=== PATIENT | female | born 1945 | race Caucasian/White ===

== ENCOUNTER 2016-12-13 09:59 | Outpatient (CLI) | payer MEDICARE, OTHER ==
--- NOTE | 2016-12-13 10:23 | RAD ---
TWO VIEW CHEST: HISTORY: Followup abnormal chest x-ray. COMPARISON: Portable exam of 12/07/16. That exam questioned a nodule in the left upper lung. FINDINGS: On today's 2-view exam, there is no evidence of pulmonary mass or nodule in the left upper lung. Th ere is a tiny calcified nodule in the right apical region which is stable. The heart is mildly enla rged. Transvenous AICD leads remain unchanged in position. Some streaky atelectatic changes in the left lung base are noted. Vascular markings are upper normal. Osseous structures unremarkable. IMPRESSION: 1. Cardiomegaly. 2. Some atelectatic changes in the left lung base. 3. No evidence of mass or nodule in the left upper lung field on this 2-view study. POS: [facility]
== END 2016-12-13 10:00 | disposition home or self-care (01) ==
LOC: MADRAD 09:59
PROVIDERS: ATTEND Family Medicine
DX: R93.8 Abnormal findings on diagnostic imaging of other specified body structures (principal); I51.7 Cardiomegaly
CPT/HCPCS: 71020

== ENCOUNTER 2017-10-13 23:44 | Emergency (ER) | payer MEDICARE ==
[~2017-10-13 23:44] MED LIST: Sodium Chloride 0.9% 1,000 ML BAG ONE
[2017-10-14 00:25] LABS: Prothrombin Time 13.7 SEC (12.0-14.7)
[2017-10-14 00:27] LABS: D-Dimer Test 1.77 *mcg/mL (0.27-0.43)
[2017-10-14] MEDS ORDERED: methylPREDNISolone Sod Succ/PF 125 MG/2 ML VIAL ONE (00:31)
[2017-10-14 00:36] LABS: PTT 28.3 SEC (22.9-36.1)
[2017-10-14 00:39] LABS: ALT (SGPT) 58 U/L (8-55); AST (SGOT) 78 U/L (5-34); Albumin 3.4 g/dL (3.4-4.8); Alkaline Phosphatase 126 U/L (40-150); Anion Gap 17 mmol/L (10-20); BUN (Urea Nitrogen) 18 mg/dL (9.8-20.1); Bilirubin, Total 0.4 mg/dL (0.2-1.2); Calc. Creatinine Clearance 0 mL/min (70-130); Carbon Dioxide 22 mmol/L (23-31); Chloride 98 mmol/L (98-107); Estimated GFR-MDRD 42; Glucose 345 mg/dL (83-110); Lipase 29 U/L (8-78); Potassium 5.1 mmol/L (3.5-5.1); Protein, Total 6.4 g/dL (6.0-8.3); Sodium 132 mmol/L (136-145)
[2017-10-14 00:43] LABS: Bilirubin Negative (Negative); Blood, Urine Trace (Negative); Clarity Clear (Clear); Glucose, Urine (Dipstick) 100 mg/dL (Negative); Leukocyte Negative (Negative); Nitrite Negative (Negative); Protein, Urine (Dipstick) > or equal to 300 mg/dL (Neg-Trace); Specific Gravity, Urine 1.025 (1.005-1.030); Urobilinogen 0.2 mg/dL (0.2-1.0); pH, Urine 6.5 (5.0-9.0)
[2017-10-14 00:45] LABS: CKMB 1.4 ng/mL (0-6.6); Troponin I 0.027 ng/mL (< 0.028)
[2017-10-14 00:45] LABS: Bacteria/HPF Rare-Few HPF (None Seen); Renal Epithelial 0-3 HPF (0-3); Squamous Epithelial 0-3 HPF (0-3); Transitional Epithelial 0-3 HPF (0-3); WBC/HPF 0-3 HPF (0-3)
[2017-10-14 00:46] LABS: Hyaline Casts/LPF 4-6 HYALINE CAST LPF (0-3 Hyaline); Other Casts/LPF 4-6 MIXED CASTS LPF (0-3 Hyaline)
[2017-10-14 00:47] LABS: #Basophils 0.2 thou/uL (0.0-0.2); #Eosinphils 0.1 thou/uL (0.0-0.7); #Lymphocytes 2.6 thou/uL (1.20-3.40); #Monocytes 0.9 thou/uL (0.11-0.59); #Neutrophils 10.1 thou/uL (1.40-6.50); %Basophils 1.4 % (0.0-1.0); %Eosinophils 0.6 % (0.0-10.0); %Lymphocytes 18.5 % (21.0-51.0); %Monocytes 6.4 % (0.0-10.0); Hemoglobin 14.7 g/dL (12.0-16.0); Mean Corpuscular HGB CONC 32.5 g/dL (32.0-36.0); Mean Corpuscular Hemoglobin 31.1 pg (27.0-31.0); Mean Corpuscular Volume 95.7 fl (81.0-99.0); Mean Platelet Volume 6.6 fL (7.4-10.4); Platelet Count 390 thou/uL (130-400); RBC Distribution Width 12.2 % (11.5-14.5); Red Blood Cell (RBC) Count 4.74 mill/uL (4.20-5.40); White Blood Cell (WBC) Count 13.8 thou/uL (4.8-10.8)
[2017-10-14] MEDS ORDERED: Enoxaparin Sodium 30 MG/0.3 ML SYRINGE ONE (00:49)
[2017-10-14] MEDS ORDERED: Midazolam HCl 10 mg/2 ml Vial ONE (00:49)
[2017-10-14] MEDS ORDERED: Enoxaparin Sodium 60 MG/0.6 ML SYRINGE ONE (00:49)
--- NOTE | 2017-10-14 08:25 | RAD ---
CHEST 1 VIEW: HISTORY: ET tube placement. COMPARISON: Chest 1 view same day. FINDINGS: The patient's endotracheal tube tip is craniad to the leonardo 3 cm. Extensive perihilar opacities are present. Heart size is enlarged. Cardiac device is similar. No pneumothorax. IMPRESSION: Endotracheal tube tip craniad to the leonardo 3.1 cm. POS: [facility]
== END 2017-10-14 01:20 | disposition short-term general hospital (02) ==
LOC: MADERS 23:44
DX: A41.9 Sepsis, unspecified organism (principal); J18.0 Bronchopneumonia, unspecified organism; J96.90 Respiratory failure, unspecified, unspecified whether with hypoxia or hypercapnia; E78.5 Hyperlipidemia, unspecified; M19.90 Unspecified osteoarthritis, unspecified site; I11.0 Hypertensive heart disease with heart failure; I50.9 Heart failure, unspecified; J44.9 Chronic obstructive pulmonary disease, unspecified; F32.9 Major depressive disorder, single episode, unspecified; F17.210 Nicotine dependence, cigarettes, uncomplicated
CPT/HCPCS: 31500; 36415; 51702; 71045; 80053; 81003; 81015; 82553; 83605; 83690; 83880; 84484; 85025; 85379; 85610; 85730; 87040; 93005; 94760; 96361; 96372; 96374; 96375; J1650; J1956; J2250; J2930; J7050; J7620

== ENCOUNTER 2019-09-27 16:30 | Emergency (ER) | payer MEDICARE ==
[2019-09-27] MEDS ORDERED: Cyclobenzaprine 10 MG TAB ONE (17:05)
[2019-09-27] MEDS ORDERED: Ketorolac Tromethamine 30 MG/ML VIAL ONE (17:05)
[2019-09-27] MEDS ORDERED: Ondansetron ODT 4 MG TAB ONE (17:05)
== END 2019-09-27 18:00 | disposition home or self-care (01) ==
LOC: MADERS 16:30
DX: M62.838 Other muscle spasm (principal); I10 Essential (primary) hypertension; E78.5 Hyperlipidemia, unspecified; M19.90 Unspecified osteoarthritis, unspecified site; I49.3 Ventricular premature depolarization; J44.9 Chronic obstructive pulmonary disease, unspecified; I11.0 Hypertensive heart disease with heart failure; I50.9 Heart failure, unspecified; F17.210 Nicotine dependence, cigarettes, uncomplicated; Z79.899 Other long term (current) drug therapy
CPT/HCPCS: 96372; 99283; J1885; Q0162

== ENCOUNTER 2019-11-25 14:33 | Emergency (ER) | payer MEDICARE ==
[2019-11-25] MEDS ORDERED: Morphine 4 MG/ML VIAL ONE ×2 (14:59→18:06)
--- NOTE | 2019-11-25 15:42 | RAD ---
Exam: XR Femur Lt 2 View STANDARD HISTORY: Left hip and thigh pain after tripping over parking barrier. COMPARISON: None. FINDINGS: Left total knee prosthesis is noted without hardware complication. Area of sclerosis is seen within t he distal left femoral metaphysis which may be related to low-grade chondroid lesion. This does not have the appearance suggestive of postsurgical change. Osteopenia is present. No fracture or dislocat ion is identified. Prominent vascular calcifications are seen in the femoral arteries bilaterally. Surgical clips are seen at the medial aspect of the distal left lower extremity. IMPRESSION: 1. No acute osseous abnormality identified. 2. Left total knee prosthesis. 3. Irregular area of sclerosis distal left femoral metaphysis which does not have the appearance sugg estive of postsurgical changes. This may represent a low-grade chondroid lesion. 4. Osteopenia.
--- NOTE | 2019-11-25 15:51 | RAD ---
Exam: XR Hip Lt 2-3 View HISTORY: Left thigh and hip pain after tripping over a parking barrier. COMPARISON: None FINDINGS: Degenerative changes in the pubic symphysis. Osteopenia is present. Mild osteoarthritis is seen invol ving the left hip. No acute fracture, dislocation, or other acute osseous abnormality is identified. Vascular calcifications are seen in the femoral arteries with surgical clips seen in the medial thigh . IMPRESSION: No acute osseous abnormality is identified.
--- NOTE | 2019-11-25 16:55 | CT ---
NONCONTRAST PELVIC CT: 11/25/19 HISTORY: Pain. Unable to ambulate or stand. Injury. FINDINGS: There appears to be a large ventral abdominal wall dehiscence with extension of mesentery, small and large bowel loops through the area of the dehiscence. The intra-abdominal contents are contained with in the peritoneal lining. No evidence of a true herniation. No evidence of bowel obstruction. The vis ualized solid organs are grossly unremarkable. Hyperdensity in the lower pole of the left kidney may represent a hemorrhagic or complex proteinaceous cyst. Hypodensity in the lower pole of the right kid vishnu is likely a cyst that is incompletely evaluated. 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 No obvious pelvic mass, lymphadenopathy, free air or free fluid. Uterus and adnexal structures are un remarkable. There is diverticulosis in the sigmoid colon. No diverticulitis. The left and right femoral neck and femoral head demonstrate appropriate trabeculation. The hip joint spaces are symmetric. Bilateral obturator rings are intact. The left and right iliac wing are also i ntact. Sacroiliac joints are patent and symmetric. Sacrum appears to be intact. Sacral ala are preser fili. Presacral fat is unremarkable. There is a nondisplaced fracture at the base of the greater trochanter. IMPRESSION: 1. Nondisplaced fracture at the base of the left greater trochanter. 2. Additional findings as above. POS: [facility]
== END 2019-11-25 18:10 | disposition short-term general hospital (02) ==
LOC: MADERS 14:33
DX: S72.115A Nondisplaced fracture of greater trochanter of left femur, initial encounter for closed fracture (principal); E78.5 Hyperlipidemia, unspecified; M19.90 Unspecified osteoarthritis, unspecified site; I11.0 Hypertensive heart disease with heart failure; I50.9 Heart failure, unspecified; I49.9 Cardiac arrhythmia, unspecified; J44.9 Chronic obstructive pulmonary disease, unspecified; F32.9 Major depressive disorder, single episode, unspecified; F17.210 Nicotine dependence, cigarettes, uncomplicated; Z74.1 Need for assistance with personal care; W18.30XA Fall on same level, unspecified, initial encounter
CPT/HCPCS: 72192; 96374; 96376; J2270

== ENCOUNTER 2020-01-12 11:12 | Outpatient (CLI) | payer MEDICARE ==
--- NOTE | 2020-01-12 13:40 | RAD ---
RADIOGRAPH LEFT KNEE 3 VIEWS: Date: 01/12/2020 HISTORY: 74-year-old female with acute, traumatic left knee pain after fall. FINDINGS: Metallic prostheses cover the distal femoral and tibial plateau articular surfaces. Resurfacing merrill es of posterior aspect of patella. No signs of hardware loosening. No acute fracture is identified, a lthough the osteopenia decreases the sensitivity. Multiple surgical clips in the soft tissues posteri or to the distal thigh and proximal leg. There is no evidence of joint effusion or hemarthrosis. IMPRESSION: 1. Status post left total knee replacement arthroplasty. 2. No acute fracture identified. POS: [facility]
--- NOTE | 2020-01-12 13:52 | RAD ---
LEFT FEMUR 4 VIEWS: Date: 01/12/2020 HISTORY: Fall 2 weeks ago with leg and hip pain. Comparison made to femur films of 11/25/2019. FINDINGS: There are degenerative changes at the hip with joint narrowing and spurring from the femoral head. Fe moral head contour is maintained. The femoral neck appears intact. There is irregularity and abnormal lucency in the intertrochanteric region. A nondisplaced fracture c annot be excluded. Findings are similar to the exam; however, if there is pain at the left hip, recommend further evaluation with hip MRI or CT. Mid and distal femur remains intact and unremarkable. The benign sclerotic density in the distal femu r is again noted. The left knee prosthesis appears stable. IMPRESSION: Degenerative change at the left hip again noted. Irregularity in the intertrochanteric region as desc ribed above. If there is clinical concern of fracture, recommend further evaluation with MRI or CT. POS: [facility]
== END 2020-01-12 11:13 | disposition home or self-care (01) ==
LOC: MADRAD 11:12
PROVIDERS: ATTEND Family Medicine
DX: M79.605 Pain in left leg (principal); M16.12 Unilateral primary osteoarthritis, left hip; R93.7 Abnormal findings on diagnostic imaging of other parts of musculoskeletal system; Z96.652 Presence of left artificial knee joint

== ENCOUNTER 2020-05-13 14:17 | Emergency (ER) | payer MEDICARE ==
[~2020-05-13 14:17] MED LIST changes: +Iopamidol 370 76% 125 ML VIAL FS ONE; -Sodium Chloride 0.9% 1,000 ML BAG ONE; +Sodium Chloride 0.9% 100 ML BAG ONE
[2020-05-13] MEDS ORDERED: Ketorolac Tromethamine 30 MG/ML VIAL ONE (15:22)
[2020-05-13] MEDS ORDERED: Ondansetron ODT 4 MG TAB ONE (15:22)
[2020-05-13 15:23] LABS: #Basophils 0.2 thou/uL (0.0-0.2); #Lymphocytes 1.7 thou/uL (1.20-3.40); #Monocytes 1.4 thou/uL (0.11-0.59); #Neutrophils 8.8 thou/uL (1.40-6.50); %Basophils 1.3 % (0.0-1.0); %Eosinophils 0.3 % (0.0-10.0); %Lymphocytes 13.8 % (21.0-51.0); %Monocytes 11.6 % (0.0-10.0); %Neutrophils 73.1 % (42.0-75.0); Hemoglobin 12.8 g/dL (12.0-16.0); Mean Corpuscular HGB CONC 31.9 g/dL (32.0-36.0); Mean Corpuscular Hemoglobin 29.8 pg (27.0-31.0); Mean Corpuscular Volume 93.3 fL (78.0-98.0); Mean Platelet Volume 7.4 fL (7.4-10.4); Platelet Count 268 thou/uL (130-400); RBC Distribution Width 13.3 % (11.5-14.5); White Blood Cell (WBC) Count 12.1 thou/uL (4.8-10.8)
[2020-05-13 15:43] LABS: ALT (SGPT) 8 U/L (8-55); AST (SGOT) 9 U/L (5-34); Albumin 3.5 g/dL (3.4-4.8); Alkaline Phosphatase 95 U/L (40-110); Anion Gap 14 mmol/L (10-20); BUN (Urea Nitrogen) 8 mg/dL (9.8-20.1); Bilirubin, Total 0.8 mg/dL (0.2-1.2); CK (CPK) 84 U/L (29-168); Calc. Creatinine Clearance 0 mL/min (70-130); Calcium 8.3 mg/dL (7.8-10.44); Carbon Dioxide 27 mmol/L (23-31); Chloride 98 mmol/L (98-107); Estimated GFR-MDRD 61; Glucose 125 mg/dL (83-110); Potassium 3.3 mmol/L (3.5-5.1); Protein, Total 6.5 g/dL (6.0-8.3); Sodium 136 mmol/L (136-145)
--- NOTE | 2020-05-13 16:06 | RAD ---
CHEST ONE VIEW: History: Dyspnea. Comparison: 02-26-2020 FINDINGS: Fairly marked cardiomegaly with bilateral vascular congestion and some increased linear and interstit ial markings bilaterally, more so in the infrahilar regions. Left ICD. No confluent pneumonia. Healed right rib fractures. IMPRESSION: Cardiomegaly with increased markings bilaterally, particularly the infrahilar regions, overall stabl e from prior exam. 02-26-2020. No confluent pneumonia or overt pleural effusion. POS: [facility]
--- NOTE | 2020-05-13 16:09 | RAD ---
LEFT FOREARM TWO VIEWS: History: Injury FINDINGS: Surgical clips overlie the distal forearm. Osteoarthrosis and degenerative changes involving the carp als bones with some intraosseous cystic changes within the triquetrum. There is diffuse bony deminera lization. No acute fracture or dislocation. IMPRESSION: Bony demineralization with osteoporosis and degenerative change without acute fracture. POS: [facility]
[2020-05-13] MEDS ORDERED: Potassium Chloride 20 MEQ TAB ONE (16:16)
--- NOTE | 2020-05-13 16:44 | RAD ---
LEFT KNEE FOUR VIEWS: History: Pain FINDINGS: Total knee arthroplasty changes. Stable probable nonaggressive_chondroid matrix bone lesion in the di stal femur, metaepiphysis region. Bony demineralization. No acute fracture or dislocation. IMPRESSION: Total knee arthroplasty changes. Stable appearing bone lesion in the distal femur. No fracture or dis location. POS: [facility]
[2020-05-13] MEDS ORDERED: traMADol HCl 50 MG TAB ONE (17:31)
--- NOTE | 2020-05-13 17:49 | CT ---
CT ANGIOGRAM OF THE CHEST: Date: 05-13-2020 History: Trauma five days ago, dyspnea, elevated D-Dimer. Technique: Axial CT imaging at 2.5 mm intervals through the chest with IV contrast using CT angiogram protocol. Coronal and sagittal 3D reformatted imaging obtained. FINDINGS: There is a transvenous pacing device entered via a left sided approach with leads in the region of th e right atrium and right ventricle. The heart is enlarged with multi-chamber cardiac enlargement, lef t greater than right. Midline sternotomy changes are present with diastasis of the sternotomy site. N o axillary lymphadenopathy. No discrete hilar or mediastinal adenopathy is seen. Limited assessment of the upper abdomen demonstrates granulomatous change within the spleen and a sli ght heterogeneity of the hepatic parenchyma. A partially imaged hypodense lesion is seen within the r ight lobe of the liver on Image 101, which appears similar when compared to a CT abdomen/pelvis perfo rmed 11-08-2015. There is lobulated enlargement of the adrenal gland on the left which is also stable when compared to prior imaging. There is an incompletely imaged hypodense lesion associated with the posterior upper pole of the right kidney suggesting a prominent cyst, enlarged when compared to the p rior examination, now measuring 5.5 cm, previously measuring in the 2.6 cm range. This lesion is inco mpletely imaged and thus, follow up renal ultrasound is advised. There is a nodule within the right l obe of the thyroid gland measuring 1.3 cm. There are scattered atherosclerotic calcification of the aortic arch and the descending thoracic aort a. No significant pleural, paracardial, or mediastinal fluid is seen. There is no pneumothorax. No discrete/dominant pulmonary parenchymal mass lesion or nodule is noted on either side. There is no discrete endobronchial lesion appreciated on this examination. Multiple old posterolateral right sided rib fractures are noted. No filling defect is seen within the pulmonary arterial vasculature to suggest the presence of acute pulmonary arterial embolism. Evaluation of the pulmonary artery supplying bilateral lower lobes is sl ightly limited secondary to motion artifact. IMPRESSION: 1. No evidence for acute pulmonary arterial embolism. 2. Incompletely imaged hypodense lesion involving upper pole of right kidney posteriorly for which fo llow up ultrasound is advised. 3. Hypodense nodule within the right lobe of the thyroid gland, for which follow up ultrasound is adv ised. Code T POS: [facility]
== END 2020-05-13 17:20 | disposition home or self-care (01) ==
LOC: MADERS 14:17
DX: S22.41XA Multiple fractures of ribs, right side, initial encounter for closed fracture (principal); J44.9 Chronic obstructive pulmonary disease, unspecified; N28.89 Other specified disorders of kidney and ureter; E04.1 Nontoxic single thyroid nodule; I10 Essential (primary) hypertension; E78.5 Hyperlipidemia, unspecified; I11.0 Hypertensive heart disease with heart failure; I50.9 Heart failure, unspecified; F17.210 Nicotine dependence, cigarettes, uncomplicated; W19.XXXA Unspecified fall, initial encounter
CPT/HCPCS: 36415; 71045; 71275; 80053; 82550; 83880; 84484; 85025; 85379; 93005; 94640; 96374; J1885; J3490; J7620; Q0162; Q9967

== ENCOUNTER 2020-06-11 08:32 | Emergency (ER) | payer MEDICARE ==
--- NOTE | 2020-06-11 10:40 | RAD ---
RIGHT WRIST THREE VIEWS: HISTORY: Injury with pain. FINDINGS: Findings show mild osteopenia. Mild degenerative change at the first carpometacarpal. Carpals appear intact. There is narrowing of the radial carpal joint with mild degenerative change. No acute fractur e identified. IMPRESSION: Degenerative changes as described. No acute fracture identified. POS: [facility]
== END 2020-06-11 09:40 | disposition home or self-care (01) ==
LOC: MADERS 08:32
DX: S63.501A Unspecified sprain of right wrist, initial encounter (principal); S80.02XA Contusion of left knee, initial encounter; S05.8X1A Other injuries of right eye and orbit, initial encounter; S60.221A Contusion of right hand, initial encounter; R14.0 Abdominal distension (gaseous); E78.5 Hyperlipidemia, unspecified; I11.0 Hypertensive heart disease with heart failure; I50.9 Heart failure, unspecified; I49.3 Ventricular premature depolarization; I49.9 Cardiac arrhythmia, unspecified; F32.9 Major depressive disorder, single episode, unspecified; D64.9 Anemia, unspecified; F17.210 Nicotine dependence, cigarettes, uncomplicated; M19.90 Unspecified osteoarthritis, unspecified site; J44.9 Chronic obstructive pulmonary disease, unspecified; Z79.899 Other long term (current) drug therapy; Z79.82 Long term (current) use of aspirin; W18.30XA Fall on same level, unspecified, initial encounter

== ENCOUNTER 2022-04-16 23:23 | Emergency (ER) | payer MEDICARE ==
[2022-04-16] MEDS ORDERED: Morphine 4 MG/ML VIAL ONE (23:44)
== END 2022-04-17 00:28 | disposition home or self-care (01) ==
LOC: MADERS 23:23
DX: S99.921A Unspecified injury of right foot, initial encounter (principal); M19.071 Primary osteoarthritis, right ankle and foot; F17.210 Nicotine dependence, cigarettes, uncomplicated; J44.9 Chronic obstructive pulmonary disease, unspecified; D64.9 Anemia, unspecified; I11.0 Hypertensive heart disease with heart failure; I50.9 Heart failure, unspecified; E78.5 Hyperlipidemia, unspecified; X58.XXXA Exposure to other specified factors, initial encounter; Z95.1 Presence of aortocoronary bypass graft; Z79.82 Long term (current) use of aspirin; Z79.899 Other long term (current) drug therapy
CPT/HCPCS: J2270

== ENCOUNTER 2022-08-06 12:14 | Emergency (ER) | payer OTHER, MEDICAID ==
[2022-08-06] MEDS ORDERED: diphenhydrAMINE 50 MG/ML VIAL ONE ×2 (12:17→12:28)
[2022-08-06] MEDS ORDERED: Sodium Chloride 0.9% 500 ML ONE (12:34)
[2022-08-06] MEDS ORDERED: HYDROcodone/Acetaminophen 10/325 mg Tablet ONE (12:34)
[2022-08-06] MEDS ORDERED: Lorazepam 2 MG/ML VIAL ONE (12:38)
[2022-08-06 12:47] LABS: Hemoglobin 13.2 g/dL (12.0-16.0); Mean Corpuscular HGB CONC 34.1 g/dL (32.0-36.0); Mean Corpuscular Volume 93.7 fl (78.0-98.0); Mean Platelet Volume 7.1 fL (7.4-10.4); Platelet Count 282 10x3/uL (130-400); RBC Distribution Width 11.6 % (11.5-14.5); Red Blood Cell (RBC) Count 4.11 mill/uL (4.20-5.40); White Blood Cell (WBC) Count 25.6 10x3/uL (4.8-10.8)
[2022-08-06 12:48] LABS: Band 3 % (5-11); Eosinophils 2 % (0-10); Lymphocytes 13 % (21-51); MDiff Complete? YES; Monocytes 4 % (0-10); Neutrophil 78 % (42-75)
[2022-08-06 12:49] LABS: Base Excess-Venous -0.1 mmol/L (-2.0 to 3.0); Bicarbonate (HCO3v) 24.2 mmol/L (22.0-28.0); CO2 Tension (PvCO2) 37.5 mmHg (42.0-51.0); Calcium, Ionized 1.14 mmol/L (1.15-1.33); Chloride 96 mmol/L (98-107); Hemoglobin - Calc 14.1 g/dL (12.0-16.0); Potassium 4.1 mmol/L (3.5-5.1); Sodium 133 mmol/L (138-145); T. Carbon Dioxide 25.3 mmol/L (22.0-28.0); vO2 Saturation-calc 95.1 % (60.0-85.0)
[2022-08-06 12:54] LABS: ALT (SGPT) 17 U/L (8-55); AST (SGOT) 26 U/L (5-34); Albumin 3.5 g/dL (3.4-4.8); Alkaline Phosphatase 84 U/L (40-110); Anion Gap 15 mmol/L (10-20); BUN (Urea Nitrogen) 18 mg/dL (9.8-20.1); Bilirubin, Total 0.9 mg/dL (0.2-1.2); Calc. Creatinine Clearance 0 mL/min (70-130); Calcium 8.9 mg/dL (7.8-10.44); Carbon Dioxide 23 mmol/L (23-31); Chloride 96 mmol/L (98-107); Estimated GFR 45; Globulin 2.8 g/dL (2.4-3.5); Glucose 114 mg/dL (83-110); Lipase 8 U/L (8-78); Potassium 4.1 mmol/L (3.5-5.1); Protein, Total 6.3 g/dL (5.8-8.1); Sodium 130 mmol/L (136-145)
[2022-08-06 12:56] LABS: Acetaminophen Less than 10.0 mcg/mL (10.0-30.0); Alcohol Less than 10 mg/dL (Less than 10); CK (CPK) 388 U/L (29-168); Magnesium 1.6 mg/dL (1.6-2.6); Salicylate Less than 8.0 mg/dL (15.0-30.0)
[2022-08-06 13:16] LABS: CKMB 6.3 ng/mL (0-6.6)
[2022-08-06] MEDS ORDERED: Sodium Chloride 0.9% 100 ML ONE ×2 (13:38→15:52)
[2022-08-06 13:54] LABS: Bilirubin Small (Negative); Blood, Urine Small (Negative); Glucose, Urine (Dipstick) 100 mg/dL (Negative); Ketone, Urine Trace mg/dL (Negative); Leukocyte Large (Negative); Nitrite Positive (Negative); Protein, Urine (Dipstick) 100 mg/dL (Neg-Trace); Specific Gravity, Urine 1.015 (1.005-1.030); pH, Urine 5.5 (5.0-9.0)
[2022-08-06 13:57] LABS: Clarity Cloudy (Clear)
[2022-08-06 13:58] LABS: Bacteria/HPF 4+ HPF (None Seen); Other Microscopic Description C&S SET UP; Squamous Epithelial 0-3 HPF (0-3); WBC/HPF Greater Than 50 HPF (0-3)
[2022-08-06 14:07] LABS: Amphetamine Not Detected (NotDetected); Barbiturates Screen Not Detected (NotDetected); Benzodiazepine Screen Detected (NotDetected); Cocaine Metabolite Screen Not Detected (NotDetected); Medtox Control Line Valid? VALID (VALID); Methadone Not Detected (NotDetected); Methamphetamine Not Detected (NotDetected); Opiate Screen Not Detected (NotDetected); Oxycodone Screen Not Detected (NotDetected); Phencyclidine (PCP) Not Detected (NotDetected); THC/Cannabinoid Screen Not Detected (NotDetected); Tricyclic Screen Not Detected (NotDetected)
[2022-08-06] MEDS ORDERED: Magnesium 2 GM/50 ML BAG (IN WATER) ONE (14:27)
[2022-08-06] MEDS ORDERED: cefTRIAXone\\ROCEPHIN 1 GM VIAL ONE (15:52)
[2022-08-06] MEDS ORDERED: Sodium Bicarb 50 MEQ/50 ML Abboject 8.4% SYRINGE ONE (15:53)
== END 2022-08-06 17:26 | disposition short-term general hospital (02) ==
LOC: MADERS 12:14
DX: N39.0 Urinary tract infection, site not specified (principal); E87.1 Hypo-osmolality and hyponatremia; T36.8X5A Adverse effect of other systemic antibiotics, initial encounter; T39.8X5A Adverse effect of other nonopioid analgesics and antipyretics, not elsewhere classified, initial encounter; R65.10 Systemic inflammatory response syndrome (SIRS) of non-infectious origin without acute organ dysfunction; N17.9 Acute kidney failure, unspecified; R77.8 Other specified abnormalities of plasma proteins; R29.898 Other symptoms and signs involving the musculoskeletal system; I11.0 Hypertensive heart disease with heart failure; I50.9 Heart failure, unspecified; J44.9 Chronic obstructive pulmonary disease, unspecified; E78.5 Hyperlipidemia, unspecified; Z79.82 Long term (current) use of aspirin; Z79.899 Other long term (current) drug therapy
CPT/HCPCS: 36415; 51702; 70450; 71045; 80053; 80306; 80307; 81003; 81015; 82330; 82550; 82553; 82803; 83605; 83690; 83735; 83880; 84484; 85025; 87040; 87077; 87086; 87186; 93005; 96361; 96365; 96367; 96372; 96375; J0696; J1200; J2060; J3370; J3475; J3490; J7030

== ENCOUNTER 2022-09-05 15:00 | Emergency (ER) | payer OTHER ==
[2022-09-05 15:45] LABS: Bilirubin Negative (Negative); Blood, Urine Trace (Negative); Clarity Slightly Cloudy (Clear); Glucose, Urine (Dipstick) Negative (Negative); Ketone, Urine Negative (Negative); Leukocyte Large (Negative); Nitrite Positive (Negative); Protein, Urine (Dipstick) Trace mg/dL (Neg-Trace); Urobilinogen 0.2 mg/dL (Less than 2); pH, Urine 6.5 (5.0-9.0)
[2022-09-05 15:47] LABS: Bacteria/HPF 4+ HPF (None Seen); RBC/HPF 0-3 HPF (0-3); Squamous Epithelial None Seen HPF (0-3); WBC/HPF Greater Than 50 HPF (0-3)
[2022-09-05 16:33] LABS: #Basophils 0.2 thou/uL (0.0-0.2); #Eosinphils 0.2 thou/uL (0.0-0.7); #Lymphocytes 3.3 thou/uL (1.20-3.40); #Monocytes 0.8 thou/uL (0.11-0.59); #Neutrophils 5.8 thou/uL (1.40-6.50); %Basophils 1.5 % (0.0-1.0); %Eosinophils 1.6 % (0.0-10.0); %Lymphocytes 32.1 % (21.0-51.0); %Monocytes 7.8 % (0.0-10.0); Hemoglobin 11.7 g/dL (12.0-16.0); Mean Corpuscular Hemoglobin 32.4 pg (27.0-31.0); Mean Corpuscular Volume 95.1 fl (78.0-98.0); Mean Platelet Volume 6.2 fL (7.4-10.4); Platelet Count 289 10x3/uL (130-400); RBC Distribution Width 12.2 % (11.5-14.5); Red Blood Cell (RBC) Count 3.62 mill/uL (4.20-5.40); White Blood Cell (WBC) Count 10.2 10x3/uL (4.8-10.8)
[2022-09-05 16:46] LABS: ALT (SGPT) 15 U/L (8-55); AST (SGOT) 14 U/L (5-34); Albumin 3.7 g/dL (3.4-4.8); Alkaline Phosphatase 82 U/L (40-110); Anion Gap 11 mmol/L (10-20); BUN (Urea Nitrogen) 16 mg/dL (9.8-20.1); Bilirubin, Total 0.8 mg/dL (0.2-1.2); Calc. Creatinine Clearance 0 mL/min (70-130); Calcium 9.8 mg/dL (7.8-10.44); Carbon Dioxide 26 mmol/L (23-31); Chloride 100 mmol/L (98-107); Estimated GFR 55; Globulin 2.9 g/dL (2.4-3.5); Glucose 113 mg/dL (83-110); Potassium 4.2 mmol/L (3.5-5.1); Protein, Total 6.6 g/dL (5.8-8.1); Sodium 133 mmol/L (136-145)
[2022-09-05] MEDS ORDERED: predniSONE 20 MG TAB ONE (17:13)
[2022-09-05] MEDS ORDERED: Cephalexin 500 MG CAP ONE (17:13)
== END 2022-09-05 17:20 | disposition home or self-care (01) ==
LOC: MADERS 15:00
DX: J44.1 Chronic obstructive pulmonary disease with (acute) exacerbation (principal); N39.0 Urinary tract infection, site not specified; I11.0 Hypertensive heart disease with heart failure; I50.9 Heart failure, unspecified; E78.5 Hyperlipidemia, unspecified; F17.210 Nicotine dependence, cigarettes, uncomplicated; Z79.82 Long term (current) use of aspirin; Z79.899 Other long term (current) drug therapy
CPT/HCPCS: 36415; 71045; 80053; 81003; 81015; 83880; 84484; 85025; 93005; J7512; J7620

== ENCOUNTER 2022-09-25 13:09 | Emergency (ER) | payer OTHER ==
[2022-09-25] MEDS ORDERED: Sodium Chloride 0.9% 1,000 ML ONE (14:05)
[2022-09-25] MEDS ORDERED: diphenhydrAMINE 50 MG/ML VIAL ONE (14:05)
[2022-09-25 14:19] LABS: Hemoglobin 12.9 g/dL (12.0-16.0); Mean Corpuscular HGB CONC 32.3 g/dL (32.0-36.0); Mean Corpuscular Hemoglobin 32.6 pg (27.0-31.0); Mean Corpuscular Volume 100.9 fl (78.0-98.0); Mean Platelet Volume 6.6 fL (7.4-10.4); Platelet Count 283 10x3/uL (130-400); RBC Distribution Width 13.4 % (11.5-14.5); Red Blood Cell (RBC) Count 3.95 mill/uL (4.20-5.40); White Blood Cell (WBC) Count 17.3 10x3/uL (4.8-10.8)
[2022-09-25 14:20] LABS: Band 7 % (5-11); Eosinophils 1 % (0-10); Lymphocytes 4 % (21-51); MDiff Complete? YES; Monocytes 1 % (0-10); Myelocyte 1 % (0-0); Neutrophil 85 % (42-75); Platelet Morphology Comment Appears Adequate; RBC Morphology Normal; Reactive Lymphocytes 1 % (0-10)
[2022-09-25 14:22] LABS: Acetaminophen Less than 10.0 mcg/mL (10.0-30.0); Alcohol Less than 10 mg/dL (Less than 10); CK (CPK) 43 U/L (29-168); Salicylate Less than 8.0 mg/dL (15.0-30.0)
[2022-09-25 14:25] LABS: ALT (SGPT) 15 U/L (8-55); AST (SGOT) 20 U/L (5-34); Albumin 3.7 g/dL (3.4-4.8); Alkaline Phosphatase 82 U/L (40-110); Anion Gap 17 mmol/L (10-20); BUN (Urea Nitrogen) 20 mg/dL (9.8-20.1); Base Excess-Venous -1.3 mmol/L (-2.0 to 3.0); Bicarbonate (HCO3v) 25.7 mmol/L (22.0-28.0); CO2 Tension (PvCO2) 50.5 mmHg (42.0-51.0); Calc. Creatinine Clearance 0 mL/min (70-130); Calcium 9.9 mg/dL (7.8-10.44); Carbon Dioxide 23 mmol/L (23-31); Chloride 102 mmol/L (98-107); Estimated GFR 54; Globulin 2.6 g/dL (2.4-3.5); Hemoglobin - Calc 15.5 g/dL (12.0-16.0); Magnesium 1.8 mg/dL (1.6-2.6); Potassium 4.5 mmol/L (3.5-5.1); Potassium 4.8 mmol/L (3.5-5.1); Protein, Total 6.3 g/dL (5.8-8.1); Sodium 137 mmol/L (136-145); Sodium 138 mmol/L (138-145); T. Carbon Dioxide 27.3 mmol/L (22.0-28.0); vO2 Saturation-calc 71.9 % (60.0-85.0)
[2022-09-25 14:36] LABS: Glucose 54 mg/dL (83-110); Lipase Less than 4 U/L (8-78)
[2022-09-25] MEDS ORDERED: Dextrose 50% Abboject 50 ML SYRINGE ONE (14:40)
[2022-09-25] MEDS ORDERED: cefTRIAXone\\ROCEPHIN 2 GM VIAL ONE (14:48)
[2022-09-25] MEDS ORDERED: Vancomycin 1 GM VIAL ONE (14:49)
[2022-09-25] MEDS ORDERED: Sodium Chloride 0.9% 250 ML 250 ML ONE (14:49)
[2022-09-25 14:51] LABS: Bilirubin Negative (Negative); Blood, Urine Negative (Negative); Clarity Clear (Clear); Glucose, Urine (Dipstick) Negative (Negative); Ketone, Urine Negative (Negative); Leukocyte Negative (Negative); Nitrite Negative (Negative); Protein, Urine (Dipstick) 30 mg/dL (Neg-Trace); Specific Gravity, Urine 1.015 (1.005-1.030); Urobilinogen 0.2 mg/dL (Less than 2)
[2022-09-25 14:59] LABS: Bacteria/HPF Rare-Few HPF (None Seen); RBC/HPF None Seen HPF (0-3); Squamous Epithelial 0-3 HPF (0-3); WBC/HPF 0-3 HPF (0-3)
[2022-09-25 15:00] LABS: Amphetamine Not Detected (NotDetected); Barbiturates Screen Not Detected (NotDetected); Benzodiazepine Screen Not Detected (NotDetected); Cocaine Metabolite Screen Not Detected (NotDetected); Medtox Control Line Valid? VALID (VALID); Methadone Not Detected (NotDetected); Methamphetamine Not Detected (NotDetected); Opiate Screen Not Detected (NotDetected); Oxycodone Screen Not Detected (NotDetected); Phencyclidine (PCP) Not Detected (NotDetected); THC/Cannabinoid Screen Not Detected (NotDetected); Tricyclic Screen Not Detected (NotDetected)
[2022-09-25] MEDS ORDERED: Acetaminophen 500 MG TAB ONE (15:24)
[2022-09-25 16:00] LABS: SARS-CoV-2 NAA Rapid Test Not Detected (NotDetected)
[2022-09-25 17:39] LABS: Lactic Acid 2.7 mmol/L (0.5-2.2)
[2022-09-25] MEDS ORDERED: Ketorolac Tromethamine 30 MG/ML VIAL ONE (18:10)
== END 2022-09-25 21:03 | disposition short-term general hospital (02) ==
LOC: MADERS 13:09
DX: A41.9 Sepsis, unspecified organism (principal); J18.9 Pneumonia, unspecified organism; Z20.822 Contact with and (suspected) exposure to COVID-19; E78.5 Hyperlipidemia, unspecified; I11.0 Hypertensive heart disease with heart failure; I50.9 Heart failure, unspecified; J44.9 Chronic obstructive pulmonary disease, unspecified; F17.210 Nicotine dependence, cigarettes, uncomplicated; Z79.899 Other long term (current) drug therapy; Z79.82 Long term (current) use of aspirin
CPT/HCPCS: 36415; 36416; 51701; 71045; 80053; 80306; 80307; 81003; 81015; 82330; 82550; 82803; 83605; 83690; 83735; 83880; 84484; 85025; 87040; 87086; 93005; 96365; 96375; J0696; J1200; J1885; J3370; J7050; J7999

== ENCOUNTER 2022-10-17 11:21 | Emergency (ER) | payer OTHER ==
[2022-10-17] MEDS ORDERED: Orphenadrine Citrate 60 MG/2 ML VIAL ONE (11:49)
== END 2022-10-17 12:05 | disposition home or self-care (01) ==
LOC: MADERS 11:21
DX: M25.511 Pain in right shoulder (principal); G89.29 Other chronic pain; J44.9 Chronic obstructive pulmonary disease, unspecified; I11.0 Hypertensive heart disease with heart failure; I50.9 Heart failure, unspecified; Z95.1 Presence of aortocoronary bypass graft; E78.5 Hyperlipidemia, unspecified; F17.210 Nicotine dependence, cigarettes, uncomplicated
CPT/HCPCS: 96372; 99283; J2360

== ENCOUNTER 2022-12-11 15:36 | Emergency (ER) | payer OTHER, MEDICAID ==
[2022-12-11 16:40] LABS: #Basophils 0.1 thou/uL (0.0-0.2); #Eosinphils 0.2 thou/uL (0.0-0.7); #Lymphocytes 2.5 thou/uL (1.20-3.40); #Monocytes 0.7 thou/uL (0.11-0.59); #Neutrophils 3.7 thou/uL (1.40-6.50); %Basophils 1.5 % (0.0-1.0); %Eosinophils 2.5 % (0.0-10.0); %Lymphocytes 35.2 % (21.0-51.0); %Monocytes 9.4 % (0.0-10.0); %Neutrophils 51.4 % (42.0-75.0); Hemoglobin 14.9 g/dL (12.0-16.0); Mean Corpuscular HGB CONC 34.4 g/dL (32.0-36.0); Mean Corpuscular Hemoglobin 31.9 pg (27.0-31.0); Mean Corpuscular Volume 92.7 fl (78.0-98.0); Mean Platelet Volume 6.6 fL (7.4-10.4); Platelet Count 245 10x3/uL (130-400); RBC Distribution Width 11.8 % (11.5-14.5); Red Blood Cell (RBC) Count 4.68 mill/uL (4.20-5.40); White Blood Cell (WBC) Count 7.2 10x3/uL (4.8-10.8)
[2022-12-11] MEDS ORDERED: Ipratropium/Albuterol 3 ML NEB ONE ×2 (16:40→16:47)
[2022-12-11] MEDS ORDERED: methylPREDNISolone Sod Succ/PF 125 MG/2 ML VIAL ONE (16:41)
[2022-12-11 16:49] LABS: Bicarbonate (HCO3v) 26.6 mmol/L (22.0-28.0); CO2 Tension (PvCO2) 33.3 mmHg (42.0-51.0); Calcium, Ionized 0.96 mmol/L (1.15-1.33); Chloride 108 mmol/L (98-107); Hemoglobin - Calc 15.5 g/dL (12.0-16.0); Potassium 3.9 mmol/L (3.5-5.1); Sodium 143 mmol/L (138-145); T. Carbon Dioxide 27.6 mmol/L (22.0-28.0); vO2 Saturation-calc 88.1 % (60.0-85.0)
[2022-12-11 16:54] LABS: ALT (SGPT) 20 U/L (8-55); AST (SGOT) 16 U/L (5-34); Albumin 3.8 g/dL (3.4-4.8); Alkaline Phosphatase 69 U/L (40-110); Anion Gap 12 mmol/L (10-20); BUN (Urea Nitrogen) 11 mg/dL (9.8-20.1); Bilirubin, Total 0.5 mg/dL (0.2-1.2); Calc. Creatinine Clearance 0 mL/min (70-130); Calcium 9.5 mg/dL (7.8-10.44); Carbon Dioxide 25 mmol/L (23-31); Chloride 108 mmol/L (98-107); Estimated GFR 76; Globulin 2.5 g/dL (2.4-3.5); Glucose 96 mg/dL (83-110); Magnesium 1.7 mg/dL (1.6-2.6); Potassium 3.5 mmol/L (3.5-5.1); Protein, Total 6.3 g/dL (5.8-8.1); Sodium 141 mmol/L (136-145)
[2022-12-11 17:34] LABS: Bilirubin Negative (Negative); Blood, Urine Negative (Negative); Clarity Clear (Clear); Glucose, Urine (Dipstick) Negative (Negative); Ketone, Urine Negative (Negative); Leukocyte Trace (Negative); Nitrite Negative (Negative); Protein, Urine (Dipstick) 30 mg/dL (Neg-Trace); Specific Gravity, Urine 1.015 (1.005-1.030); Urobilinogen 0.2 mg/dL (Less than 2)
[2022-12-11 17:42] LABS: Bacteria/HPF 1+ HPF (None Seen); RBC/HPF 0-3 HPF (0-3); Squamous Epithelial 0-3 HPF (0-3)
== END 2022-12-11 18:04 | disposition home or self-care (01) ==
LOC: MADERS 15:36
DX: J44.1 Chronic obstructive pulmonary disease with (acute) exacerbation (principal); N39.0 Urinary tract infection, site not specified; E78.00 Pure hypercholesterolemia, unspecified; I11.0 Hypertensive heart disease with heart failure; I50.9 Heart failure, unspecified; M19.90 Unspecified osteoarthritis, unspecified site; J44.9 Chronic obstructive pulmonary disease, unspecified; D64.9 Anemia, unspecified; F17.210 Nicotine dependence, cigarettes, uncomplicated; Z20.822 Contact with and (suspected) exposure to COVID-19; Z95.1 Presence of aortocoronary bypass graft; Z79.82 Long term (current) use of aspirin; Z79.899 Other long term (current) drug therapy
CPT/HCPCS: 71045; 80053; 81003; 81015; 82330; 82803; 83605; 83735; 83880; 84484; 85014; 85025; 87086; 87804; 93005; 96374; J2930; J7620; U0003; U0005

== ENCOUNTER 2023-04-06 21:51 | Emergency (ER) | payer MEDICAID, OTHER ==
[2023-04-06] MEDS ORDERED: HYDROcodone/Acetaminophen 5/325 mg Tablet ONE (22:16)
[2023-04-06 22:38] LABS: Bilirubin Negative (Negative); Blood, Urine Negative (Negative); Clarity Clear (Clear); Glucose, Urine (Dipstick) Negative (Negative); Ketone, Urine Negative (Negative); Leukocyte Moderate (Negative); Nitrite Negative (Negative); Protein, Urine (Dipstick) Negative (Neg-Trace); Urobilinogen 0.2 mg/dL (Less than 2)
[2023-04-06 22:49] LABS: CAUTI Indications for Culture Dysuria,urgency,freq; RBC/HPF 0-3 HPF (0-3); WBC/HPF 21-50 HPF (0-3)
[2023-04-06 22:50] LABS: Bacteria/HPF Rare-Few HPF (None Seen)
[2023-04-06 22:51] LABS: Urine Culture Reflex Yes Yes
[2023-04-06] MEDS ORDERED: Cephalexin 500 MG CAP ONE (23:07)
== END 2023-04-06 23:11 | disposition home or self-care (01) ==
LOC: MADERS 21:51
DX: N39.0 Urinary tract infection, site not specified (principal); J44.9 Chronic obstructive pulmonary disease, unspecified; E78.5 Hyperlipidemia, unspecified; I11.0 Hypertensive heart disease with heart failure; I50.9 Heart failure, unspecified; F17.210 Nicotine dependence, cigarettes, uncomplicated
CPT/HCPCS: 81001; 87086; 99283

== ENCOUNTER 2023-04-10 17:53 | Emergency (ER) | payer OTHER ==
[2023-04-10] MEDS ORDERED: Lidocaine 1% w/Epinephrine 1:100K 30 ML VIAL ONE (18:56)
[2023-04-10 19:07] LABS: Bilirubin Negative (Negative); Blood, Urine Trace (Negative); Clarity Cloudy (Clear); Glucose, Urine (Dipstick) Negative (Negative); Ketone, Urine Negative (Negative); Leukocyte Large (Negative); Nitrite Negative (Negative); Protein, Urine (Dipstick) 30 mg/dL (Neg-Trace); Urobilinogen 0.2 mg/dL (Less than 2)
[2023-04-10 19:17] LABS: Bacteria/HPF Rare-Few HPF (None Seen); CAUTI Indications for Culture Dysuria,urgency,freq; RBC/HPF 0-3 HPF (0-3); Squamous Epithelial 0-3 HPF (0-3); Urine Culture Reflex Yes Yes; WBC/HPF Greater Than 50 HPF (0-3)
[2023-04-10 20:44] LABS: #Basophils 0.2 thou/uL (0.0-0.2); #Eosinphils 0.2 thou/uL (0.0-0.7); #Lymphocytes 2.5 thou/uL (1.20-3.40); #Monocytes 0.9 thou/uL (0.11-0.59); #Neutrophils 13.9 thou/uL (1.40-6.50); %Basophils 1.1 % (0.0-1.0); %Lymphocytes 14.2 % (21.0-51.0); %Monocytes 5.3 % (0.0-10.0); %Neutrophils 78.5 % (42.0-75.0); Hemoglobin 12.3 g/dL (12.0-16.0); Mean Corpuscular HGB CONC 33.9 g/dL (32.0-36.0); Mean Corpuscular Hemoglobin 33.1 pg (27.0-31.0); Mean Corpuscular Volume 97.8 fl (78.0-98.0); Mean Platelet Volume 7.5 fL (7.4-10.4); Platelet Count 267 10x3/uL (130-400); RBC Distribution Width 12.8 % (11.5-14.5); White Blood Cell (WBC) Count 17.7 10x3/uL (4.8-10.8)
[2023-04-10 20:45] LABS: PTT 38.2 sec (22.9-36.1)
[2023-04-10 20:54] LABS: ALT (SGPT) 15 U/L (8-55); AST (SGOT) 12 U/L (5-34); Albumin 3.7 g/dL (3.4-4.8); Alkaline Phosphatase 86 U/L (40-110); Anion Gap 12 mmol/L (10-20); BUN (Urea Nitrogen) 10 mg/dL (9.8-20.1); Bilirubin, Total 0.5 mg/dL (0.2-1.2); Calc. Creatinine Clearance 0 mL/min (70-130); Calcium 9.2 mg/dL (7.8-10.44); Carbon Dioxide 27 mmol/L (23-31); Chloride 101 mmol/L (98-107); Estimated GFR 76; Globulin 2.6 g/dL (2.4-3.5); Glucose 93 mg/dL (83-110); Lipase 17 U/L (8-78); Potassium 3.4 mmol/L (3.5-5.1); Protein, Total 6.3 g/dL (5.8-8.1); Sodium 137 mmol/L (136-145)
[2023-04-10] MEDS ORDERED: Ipratropium/Albuterol 3 ML NEB ONE (21:00)
[2023-04-10] MEDS ORDERED: Sodium Chloride 0.9% 500 ML ONE (21:22)
[2023-04-10] MEDS ORDERED: Cefepime 2 GM VIAL ONE (21:22)
[2023-04-10] MEDS ORDERED: Potassium Chloride 20 MEQ TAB ONE (22:43)
[2023-04-10] MEDS ORDERED: Doxycycline 100 MG CAP ONE (22:43)
[2023-04-11 14:41] LABS: Chlamydia by PCR, Vaginal Swab Not Detected (NotDetected); GC by PCR, Vaginal Swab Not Detected (NotDetected)
== END 2023-04-10 23:00 | disposition home or self-care (01) ==
LOC: MADERS 17:53
DX: J18.9 Pneumonia, unspecified organism (principal); I71.40 Abdominal aortic aneurysm, without rupture, unspecified; K59.00 Constipation, unspecified; E87.6 Hypokalemia; R82.81 Pyuria; R65.10 Systemic inflammatory response syndrome (SIRS) of non-infectious origin without acute organ dysfunction; I11.0 Hypertensive heart disease with heart failure; I50.9 Heart failure, unspecified; M19.90 Unspecified osteoarthritis, unspecified site; J44.9 Chronic obstructive pulmonary disease, unspecified; I25.10 Atherosclerotic heart disease of native coronary artery without angina pectoris; D64.9 Anemia, unspecified; F17.210 Nicotine dependence, cigarettes, uncomplicated; E78.00 Pure hypercholesterolemia, unspecified; Z79.82 Long term (current) use of aspirin; Z79.899 Other long term (current) drug therapy; Z95.1 Presence of aortocoronary bypass graft
CPT/HCPCS: 36415; 71045; 74177; 80053; 81001; 83605; 83690; 85025; 85610; 85730; 87040; 87086; 87480; 87491; 87510; 87591; 87660; 94760; 96365; J0692; J7030; J7620

== ENCOUNTER 2023-05-22 14:18 | Emergency (ER) | payer OTHER ==
[2023-05-22] MEDS ORDERED: Morphine 4 MG/ML VIAL ONE (15:09)
[2023-05-22] MEDS ORDERED: Ketorolac Tromethamine 30 MG/ML VIAL ONE (15:10)
[2023-05-22] MEDS ORDERED: Morphine 2 MG/ML VIAL ONE (15:10)
== END 2023-05-22 15:25 | disposition home or self-care (01) ==
LOC: MADERS 14:18
DX: T50.Z95A Adverse effect of other vaccines and biological substances, initial encounter (principal); F17.210 Nicotine dependence, cigarettes, uncomplicated; E78.5 Hyperlipidemia, unspecified; I11.0 Hypertensive heart disease with heart failure; I50.9 Heart failure, unspecified
CPT/HCPCS: 93005; 96372; J1885; J2270; J2272

== ENCOUNTER 2023-07-09 18:41 | Emergency (ER) | payer OTHER ==
[2023-07-09] MEDS ORDERED: Ipratropium/Albuterol 3 ML NEB ONE (18:48)
[2023-07-09] MEDS ORDERED: methylPREDNISolone Sod Succ/PF 125 MG/2 ML VIAL ONE (19:00)
[2023-07-09] MEDS ORDERED: Furosemide 40 MG/4 ML VIAL ONE (19:22)
[2023-07-09 19:33] LABS: #Basophils 0.2 thou/uL (0.0-0.2); #Eosinphils 0.1 thou/uL (0.0-0.7); #Lymphocytes 3.1 thou/uL (1.20-3.40); #Monocytes 0.8 thou/uL (0.11-0.59); #Neutrophils 5.2 thou/uL (1.40-6.50); %Basophils 1.8 % (0.0-1.0); %Eosinophils 1.2 % (0.0-10.0); %Monocytes 8.6 % (0.0-10.0); %Neutrophils 55.3 % (42.0-75.0); Hematocrit 36.5 % (36.0-47.0); Hemoglobin 11.8 g/dL (12.0-16.0); Mean Corpuscular HGB CONC 32.4 g/dL (32.0-36.0); Mean Corpuscular Hemoglobin 31.8 pg (27.0-31.0); Mean Corpuscular Volume 98.2 fl (78.0-98.0); Mean Platelet Volume 7.7 fL (7.4-10.4); Platelet Count 249 10x3/uL (130-400); RBC Distribution Width 13.3 % (11.5-14.5); Red Blood Cell (RBC) Count 3.71 mill/uL (4.20-5.40); White Blood Cell (WBC) Count 9.4 10x3/uL (4.8-10.8)
[2023-07-09 19:41] LABS: Prothrombin Time 13.6 sec (12.0-14.7)
[2023-07-09 19:46] LABS: Base Excess-Venous 2.4 mmol/L (-2.0 to 3.0); Bicarbonate (HCO3v) 27.2 mmol/L (22.0-28.0); Calcium, Ionized 1.15 mmol/L (1.15-1.33); Chloride 103 mmol/L (98-107); Hemoglobin - Calc 12.1 g/dL (12.0-16.0); Potassium 2.7 mmol/L (3.5-5.1); Sodium 141 mmol/L (138-145); T. Carbon Dioxide 28.5 mmol/L (22.0-28.0); vO2 Saturation-calc 77.7 % (60.0-85.0)
[2023-07-09 19:50] LABS: ALT (SGPT) 19 U/L (8-55); AST (SGOT) 18 U/L (5-34); Albumin 3.5 g/dL (3.4-4.8); Alkaline Phosphatase 84 U/L (40-110); Anion Gap 15 mmol/L (10-20); BUN (Urea Nitrogen) 7 mg/dL (9.8-20.1); Bilirubin, Total 0.6 mg/dL (0.2-1.2); Calc. Creatinine Clearance 0 mL/min (70-130); Calcium 9.3 mg/dL (7.8-10.44); Carbon Dioxide 24 mmol/L (23-31); Chloride 102 mmol/L (98-107); Estimated GFR 80; Globulin 2.7 g/dL (2.4-3.5); Glucose 106 mg/dL (83-110); Potassium 2.7 mmol/L (3.5-5.1); Protein, Total 6.2 g/dL (5.8-8.1); Sodium 138 mmol/L (136-145)
[2023-07-09 19:51] LABS: Troponin I 0.025 ng/mL (< 0.028)
[2023-07-09 20:01] LABS: SARS-CoV-2 NAA Rapid Test Not Detected (NotDetected)
[2023-07-09] MEDS ORDERED: Potassium Chloride 10 MEQ TAB ONE (20:21)
[2023-07-09] MEDS ORDERED: Potassium Chloride 20 MEQ TAB ONE (21:00)
== END 2023-07-09 20:48 | disposition short-term general hospital (02) ==
LOC: MADERS 18:41
DX: I11.0 Hypertensive heart disease with heart failure (principal); I50.21 Acute systolic (congestive) heart failure; J44.9 Chronic obstructive pulmonary disease, unspecified; M19.90 Unspecified osteoarthritis, unspecified site; D64.9 Anemia, unspecified; F17.210 Nicotine dependence, cigarettes, uncomplicated; Z20.822 Contact with and (suspected) exposure to COVID-19; Z95.0 Presence of cardiac pacemaker
CPT/HCPCS: 71045; 80053; 82330; 82435; 82803; 83880; 84132; 84295; 84484; 85014; 85025; 85610; 93005; U0002; 36415; 96374; 96375; J1940; J2930; J7620

== ENCOUNTER 2023-07-15 19:43 | Inpatient (IN) | payer OTHER ==
[2023-07-15] MEDS ORDERED: Albuterol 200 PUFF (6.7GM INHALER) INH PRN (21:26)
[2023-07-16] MEDS: Ipratropium Bromide 2.5 ml Neb NEB SCH ×5 (00:35→23:37)
[2023-07-16] MEDS: Acetaminophen 325 MG TAB PO PRN (00:36)
[2023-07-16] MEDS: Budesonide 0.5 MG/2 ML NEB NEB SCH ×2 (08:59→21:00)
[2023-07-16] MEDS: Polyethylene Glycol 3350 17 GM Packet PO SCH (09:00)
[2023-07-16] MEDS: Carvedilol 12.5 MG TAB PO SCH ×2 (09:01→17:03)
[2023-07-16] MEDS: predniSONE 20 MG TAB PO SCH (09:01)
[2023-07-16] MEDS: Loratadine 10 MG TAB PO SCH (09:01)
[2023-07-16] MEDS: Ferrous Sulfate 325 MG TAB PO SCH (09:01)
[2023-07-16] MEDS: Aspirin 325 mg Enteric Coated Tablet PO SCH (09:01)
[2023-07-16] MEDS: Losartan 25 MG TAB PO SCH (09:01)
[2023-07-16] MEDS: Calcium Carbonate 600 MG + Vit D TAB PO SCH (09:01)
[2023-07-16] MEDS: Multivit, Therapeutic 1 TAB PO SCH (09:01)
[2023-07-16] MEDS: Furosemide 40 MG TAB PO SCH ×2 (09:02→17:03)
[2023-07-16] MEDS: Bupropion 150 MG SR.TAB PO SCH ×2 (09:02→21:03)
[2023-07-16] MEDS: Oxybutynin 5 MG TAB PO SCH (09:02)
[2023-07-16] MEDS: Ascorbic Acid 500 mg Chewable Tablet PO SCH (09:02)
[2023-07-16] MEDS: CO Q-10 CAPSULE 100 MG PO SCH (09:03)
[2023-07-16] MEDS: Ondansetron ODT 4 MG TAB PO PRN (11:14)
[2023-07-16] MEDS ORDERED: Mometasone Furoate 30 PUFF 220 MCG INH SCH (18:30)
[2023-07-16] MEDS: Atorvastatin Calcium 40 MG TAB PO SCH (20:59)
[2023-07-16] MEDS: traZODone HCl 50 MG TAB PO SCH (21:00)
[2023-07-16] MEDS: Gabapentin 300 MG CAP PO SCH (21:00)
[2023-07-17] MEDS: Ipratropium Bromide 2.5 ml Neb NEB SCH (04:58)
[2023-07-17] MEDS: Oxybutynin 5 MG TAB PO SCH (08:02)
[2023-07-17] MEDS: CO Q-10 CAPSULE 100 MG PO SCH (08:02)
[2023-07-17] MEDS: Calcium Carbonate 600 MG + Vit D TAB PO SCH (08:02)
[2023-07-17] MEDS: predniSONE 20 MG TAB PO SCH (08:02)
[2023-07-17] MEDS: Aspirin 325 mg Enteric Coated Tablet PO SCH (08:02)
[2023-07-17] MEDS: Ascorbic Acid 500 mg Chewable Tablet PO SCH (08:02)
[2023-07-17] MEDS: Bupropion 150 MG SR.TAB PO SCH ×2 (08:02→20:50)
[2023-07-17] MEDS: Multivit, Therapeutic 1 TAB PO SCH (08:02)
[2023-07-17] MEDS: Loratadine 10 MG TAB PO SCH (08:02)
[2023-07-17] MEDS: Ferrous Sulfate 325 MG TAB PO SCH (08:04)
[2023-07-17] MEDS: Budesonide 0.5 MG/2 ML NEB NEB SCH ×2 (08:04→20:50)
[2023-07-17] MEDS: Polyethylene Glycol 3350 17 GM Packet PO SCH (08:05)
[2023-07-17] MEDS: Furosemide 40 MG TAB PO SCH ×2 (10:00→17:15)
[2023-07-17] MEDS: Carvedilol 12.5 MG TAB PO SCH ×2 (10:00→17:18)
[2023-07-17] MEDS: Losartan 25 MG TAB PO SCH (10:11)
[2023-07-17] MEDS: Ipratropium/Albuterol 3 ML NEB NEB SCH ×2 (12:01→17:15)
[2023-07-17] MEDS: Atorvastatin Calcium 40 MG TAB PO SCH (20:50)
[2023-07-17] MEDS: traZODone HCl 50 MG TAB PO SCH (20:51)
[2023-07-17] MEDS: Gabapentin 300 MG CAP PO SCH (20:51)
[2023-07-18] MEDS: Ipratropium/Albuterol 3 ML NEB NEB SCH ×4 (00:08→17:58)
[2023-07-18 05:48] LABS: #Basophils 0.1 thou/uL (0.0-0.2); #Eosinphils 0.1 thou/uL (0.0-0.7); #Lymphocytes 3.8 thou/uL (1.20-3.40); #Monocytes 1.1 thou/uL (0.11-0.59); #Neutrophils 5.5 thou/uL (1.40-6.50); %Basophils 1.2 % (0.0-1.0); %Eosinophils 0.9 % (0.0-10.0); %Lymphocytes 35.9 % (21.0-51.0); %Monocytes 10.3 % (0.0-10.0); %Neutrophils 51.8 % (42.0-75.0); Hematocrit 35.8 % (36.0-47.0); Hemoglobin 11.9 g/dL (12.0-16.0); Mean Corpuscular HGB CONC 33.2 g/dL (32.0-36.0); Mean Corpuscular Volume 96.4 fl (78.0-98.0); Mean Platelet Volume 8.5 fL (7.4-10.4); Platelet Count 241 10x3/uL (130-400); Red Blood Cell (RBC) Count 3.72 mill/uL (4.20-5.40); White Blood Cell (WBC) Count 10.7 10x3/uL (4.8-10.8)
[2023-07-18 05:59] LABS: ALT (SGPT) 32 U/L (8-55); AST (SGOT) 13 U/L (5-34); Albumin 3.1 g/dL (3.4-4.8); Alkaline Phosphatase 69 U/L (40-110); Anion Gap 13 mmol/L (10-20); BUN (Urea Nitrogen) 36 mg/dL (9.8-20.1); Bilirubin, Total 0.4 mg/dL (0.2-1.2); Calc. Creatinine Clearance 45 mL/min (70-130); Calcium 8.6 mg/dL (7.8-10.44); Carbon Dioxide 29 mmol/L (23-31); Chloride 97 mmol/L (98-107); Estimated GFR 69; Globulin 2.4 g/dL (2.4-3.5); Glucose 94 mg/dL (83-110); Potassium 3.4 mmol/L (3.5-5.1); Protein, Total 5.5 g/dL (5.8-8.1); Sodium 136 mmol/L (136-145)
[2023-07-18] MEDS: Budesonide 0.5 MG/2 ML NEB NEB SCH ×2 (08:46→20:37)
[2023-07-18] MEDS: Polyethylene Glycol 3350 17 GM Packet PO SCH (08:47)
[2023-07-18] MEDS: Multivit, Therapeutic 1 TAB PO SCH (08:48)
[2023-07-18] MEDS: Oxybutynin 5 MG TAB PO SCH (08:49)
[2023-07-18] MEDS: Ferrous Sulfate 325 MG TAB PO SCH (08:49)
[2023-07-18] MEDS: Aspirin 325 mg Enteric Coated Tablet PO SCH (08:49)
[2023-07-18] MEDS: Loratadine 10 MG TAB PO SCH (08:49)
[2023-07-18] MEDS: Losartan 25 MG TAB PO SCH (08:49)
[2023-07-18] MEDS: Calcium Carbonate 600 MG + Vit D TAB PO SCH (08:49)
[2023-07-18] MEDS: Furosemide 20 MG TAB PO SCH ×2 (08:50→14:56)
[2023-07-18] MEDS: CO Q-10 CAPSULE 100 MG PO SCH (08:50)
[2023-07-18] MEDS: Bupropion 150 MG SR.TAB PO SCH ×2 (08:50→20:43)
[2023-07-18] MEDS: Carvedilol 3.125 MG TAB PO SCH ×2 (08:50→17:58)
[2023-07-18] MEDS: predniSONE 20 MG TAB PO SCH (08:50)
[2023-07-18] MEDS: Ascorbic Acid 500 mg Chewable Tablet PO SCH (08:50)
[2023-07-18] MEDS ORDERED: Furosemide 40 MG TAB PO SCH (09:00)
[2023-07-18] MEDS ORDERED: Potassium Chloride 20 MEQ TAB PO SCH (15:30)
[2023-07-18] MEDS: traZODone HCl 50 MG TAB PO SCH (20:37)
[2023-07-18] MEDS: Atorvastatin Calcium 40 MG TAB PO SCH (20:37)
[2023-07-18] MEDS: Gabapentin 300 MG CAP PO SCH (20:37)
[2023-07-19] MEDS: Ipratropium/Albuterol 3 ML NEB NEB SCH ×6 (00:41→23:44)
[2023-07-19] MEDS: Oxybutynin 5 MG TAB PO SCH (08:29)
[2023-07-19] MEDS: CO Q-10 CAPSULE 100 MG PO SCH (08:29)
[2023-07-19] MEDS: Ferrous Sulfate 325 MG TAB PO SCH (08:29)
[2023-07-19] MEDS: Aspirin 325 mg Enteric Coated Tablet PO SCH (08:30)
[2023-07-19] MEDS: Bupropion 150 MG SR.TAB PO SCH ×2 (08:30→20:04)
[2023-07-19] MEDS: Budesonide 0.5 MG/2 ML NEB NEB SCH ×2 (08:30→20:04)
[2023-07-19] MEDS: Ascorbic Acid 500 mg Chewable Tablet PO SCH (08:30)
[2023-07-19] MEDS: Carvedilol 3.125 MG TAB PO SCH ×2 (08:30→16:55)
[2023-07-19] MEDS: Loratadine 10 MG TAB PO SCH (08:30)
[2023-07-19] MEDS: Losartan 25 MG TAB PO SCH (08:30)
[2023-07-19] MEDS: Calcium Carbonate 600 MG + Vit D TAB PO SCH (08:31)
[2023-07-19] MEDS: Polyethylene Glycol 3350 17 GM Packet PO SCH (08:31)
[2023-07-19] MEDS: predniSONE 20 MG TAB PO SCH (08:31)
[2023-07-19] MEDS: Furosemide 20 MG TAB PO SCH ×2 (08:31→14:12)
[2023-07-19] MEDS: Multivit, Therapeutic 1 TAB PO SCH (08:32)
[2023-07-19] MEDS: Acetaminophen 325 MG TAB PO PRN (14:11)
[2023-07-19] MEDS: traZODone HCl 50 MG TAB PO SCH (20:04)
[2023-07-19] MEDS: Gabapentin 300 MG CAP PO SCH (20:04)
[2023-07-19] MEDS: Atorvastatin Calcium 40 MG TAB PO SCH (20:04)
[2023-07-20] MEDS: Acetaminophen 325 MG TAB PO PRN (00:44)
[2023-07-20] MEDS: Ipratropium/Albuterol 3 ML NEB NEB SCH ×3 (05:50→17:28)
[2023-07-20] MEDS: Ferrous Sulfate 325 MG TAB PO SCH (08:41)
[2023-07-20] MEDS: Losartan 25 MG TAB PO SCH (08:41)
[2023-07-20] MEDS: Multivit, Therapeutic 1 TAB PO SCH (08:41)
[2023-07-20] MEDS: Budesonide 0.5 MG/2 ML NEB NEB SCH ×2 (08:41→20:17)
[2023-07-20] MEDS: Calcium Carbonate 600 MG + Vit D TAB PO SCH (08:41)
[2023-07-20] MEDS: Ascorbic Acid 500 mg Chewable Tablet PO SCH (08:41)
[2023-07-20] MEDS: Loratadine 10 MG TAB PO SCH (08:41)
[2023-07-20] MEDS: predniSONE 20 MG TAB PO SCH (08:41)
[2023-07-20] MEDS: Aspirin 325 mg Enteric Coated Tablet PO SCH (08:41)
[2023-07-20] MEDS: Oxybutynin 5 MG TAB PO SCH (08:41)
[2023-07-20] MEDS: CO Q-10 CAPSULE 100 MG PO SCH (08:41)
[2023-07-20] MEDS: Carvedilol 3.125 MG TAB PO SCH ×2 (08:42→17:28)
[2023-07-20] MEDS: Furosemide 20 MG TAB PO SCH ×2 (08:42→14:04)
[2023-07-20] MEDS: Polyethylene Glycol 3350 17 GM Packet PO SCH (08:43)
[2023-07-20] MEDS: Bupropion 150 MG SR.TAB PO SCH ×2 (08:43→20:18)
[2023-07-20] MEDS: Gabapentin 300 MG CAP PO SCH (20:18)
[2023-07-20] MEDS: traZODone HCl 50 MG TAB PO SCH (20:18)
[2023-07-20] MEDS: Atorvastatin Calcium 40 MG TAB PO SCH (20:18)
[2023-07-20] MEDS: Ondansetron ODT 4 MG TAB PO PRN (20:24)
[2023-07-21] MEDS: Ipratropium/Albuterol 3 ML NEB NEB SCH ×4 (00:11→17:01)
[2023-07-21 05:39] LABS: Anion Gap 11 mmol/L (10-20); BUN (Urea Nitrogen) 19 mg/dL (9.8-20.1); Calc. Creatinine Clearance 63 mL/min (70-130); Calcium 8.5 mg/dL (7.8-10.44); Carbon Dioxide 28 mmol/L (23-31); Chloride 101 mmol/L (98-107); Estimated GFR 89; Glucose 84 mg/dL (83-110); Potassium 4.3 mmol/L (3.5-5.1); Sodium 136 mmol/L (136-145)
[2023-07-21] MEDS: Carvedilol 3.125 MG TAB PO SCH ×2 (08:22→17:01)
[2023-07-21] MEDS: Ascorbic Acid 500 mg Chewable Tablet PO SCH (08:22)
[2023-07-21] MEDS: Ferrous Sulfate 325 MG TAB PO SCH (08:22)
[2023-07-21] MEDS: Aspirin 325 mg Enteric Coated Tablet PO SCH (08:22)
[2023-07-21] MEDS: Budesonide 0.5 MG/2 ML NEB NEB SCH ×2 (08:22→20:10)
[2023-07-21] MEDS: Furosemide 20 MG TAB PO SCH ×2 (08:23→15:01)
[2023-07-21] MEDS: CO Q-10 CAPSULE 100 MG PO SCH (08:23)
[2023-07-21] MEDS: Oxybutynin 5 MG TAB PO SCH (08:24)
[2023-07-21] MEDS: predniSONE 20 MG TAB PO SCH (08:24)
[2023-07-21] MEDS: Calcium Carbonate 600 MG + Vit D TAB PO SCH (08:24)
[2023-07-21] MEDS: Bupropion 150 MG SR.TAB PO SCH ×2 (08:24→20:07)
[2023-07-21] MEDS: Multivit, Therapeutic 1 TAB PO SCH (08:24)
[2023-07-21] MEDS: Losartan 25 MG TAB PO SCH (08:24)
[2023-07-21] MEDS: Polyethylene Glycol 3350 17 GM Packet PO SCH (08:24)
[2023-07-21] MEDS: Loratadine 10 MG TAB PO SCH (08:24)
[2023-07-21] MEDS: Atorvastatin Calcium 40 MG TAB PO SCH (20:07)
[2023-07-21] MEDS: traZODone HCl 50 MG TAB PO SCH (20:07)
[2023-07-21] MEDS: Gabapentin 300 MG CAP PO SCH (20:08)
[2023-07-22] MEDS: Ipratropium/Albuterol 3 ML NEB NEB SCH ×4 (00:17→17:10)
[2023-07-22] MEDS: Melatonin 3 MG TAB PO PRN (02:03)
[2023-07-22] MEDS: predniSONE 20 MG TAB PO SCH (08:33)
[2023-07-22] MEDS: CO Q-10 CAPSULE 100 MG PO SCH (08:34)
[2023-07-22] MEDS: Oxybutynin 5 MG TAB PO SCH (08:34)
[2023-07-22] MEDS: Ascorbic Acid 500 mg Chewable Tablet PO SCH (08:35)
[2023-07-22] MEDS: Losartan 25 MG TAB PO SCH (08:35)
[2023-07-22] MEDS: Carvedilol 3.125 MG TAB PO SCH ×2 (08:35→17:10)
[2023-07-22] MEDS: Calcium Carbonate 600 MG + Vit D TAB PO SCH (08:35)
[2023-07-22] MEDS: Furosemide 20 MG TAB PO SCH ×2 (08:35→13:35)
[2023-07-22] MEDS: Budesonide 0.5 MG/2 ML NEB NEB SCH ×2 (08:36→20:30)
[2023-07-22] MEDS: Ferrous Sulfate 325 MG TAB PO SCH (08:36)
[2023-07-22] MEDS: Polyethylene Glycol 3350 17 GM Packet PO SCH (08:36)
[2023-07-22] MEDS: Aspirin 325 mg Enteric Coated Tablet PO SCH (08:36)
[2023-07-22] MEDS: Multivit, Therapeutic 1 TAB PO SCH (08:37)
[2023-07-22] MEDS: Loratadine 10 MG TAB PO SCH (08:37)
[2023-07-22] MEDS: Atorvastatin Calcium 40 MG TAB PO SCH (20:30)
[2023-07-22] MEDS: traZODone HCl 50 MG TAB PO SCH (20:30)
[2023-07-22] MEDS: Bupropion 150 MG SR.TAB PO SCH (20:30)
[2023-07-22] MEDS: Gabapentin 300 MG CAP PO SCH (20:30)
[2023-07-23] MEDS: Ipratropium/Albuterol 3 ML NEB NEB SCH ×4 (00:58→17:04)
[2023-07-23] MEDS: Melatonin 3 MG TAB PO PRN (00:58)
[2023-07-23] MEDS: Losartan 25 MG TAB PO SCH (08:39)
[2023-07-23] MEDS: predniSONE 20 MG TAB PO SCH (08:40)
[2023-07-23] MEDS: Loratadine 10 MG TAB PO SCH (08:40)
[2023-07-23] MEDS: Calcium Carbonate 600 MG + Vit D TAB PO SCH (08:40)
[2023-07-23] MEDS: CO Q-10 CAPSULE 100 MG PO SCH (08:40)
[2023-07-23] MEDS: Bupropion 150 MG SR.TAB PO SCH ×2 (08:40→20:08)
[2023-07-23] MEDS: Ferrous Sulfate 325 MG TAB PO SCH (08:40)
[2023-07-23] MEDS: Ascorbic Acid 500 mg Chewable Tablet PO SCH (08:40)
[2023-07-23] MEDS: Furosemide 20 MG TAB PO SCH ×2 (08:40→15:10)
[2023-07-23] MEDS: Oxybutynin 5 MG TAB PO SCH (08:40)
[2023-07-23] MEDS: Multivit, Therapeutic 1 TAB PO SCH (08:40)
[2023-07-23] MEDS: Aspirin 325 mg Enteric Coated Tablet PO SCH (08:40)
[2023-07-23] MEDS: Carvedilol 3.125 MG TAB PO SCH ×2 (08:41→17:04)
[2023-07-23] MEDS: Polyethylene Glycol 3350 17 GM Packet PO SCH (08:41)
[2023-07-23] MEDS: Budesonide 0.5 MG/2 ML NEB NEB SCH ×2 (08:42→20:07)
[2023-07-23] MEDS: traZODone HCl 50 MG TAB PO SCH (20:07)
[2023-07-23] MEDS: Atorvastatin Calcium 40 MG TAB PO SCH (20:08)
[2023-07-23] MEDS: Gabapentin 300 MG CAP PO SCH (20:08)
[2023-07-24] MEDS: Ipratropium/Albuterol 3 ML NEB NEB SCH ×5 (00:35→23:04)
[2023-07-24] MEDS: Ascorbic Acid 500 mg Chewable Tablet PO SCH (09:26)
[2023-07-24] MEDS: Aspirin 325 mg Enteric Coated Tablet PO SCH (09:26)
[2023-07-24] MEDS: Polyethylene Glycol 3350 17 GM Packet PO SCH (09:26)
[2023-07-24] MEDS: CO Q-10 CAPSULE 100 MG PO SCH (09:26)
[2023-07-24] MEDS: predniSONE 20 MG TAB PO SCH (09:27)
[2023-07-24] MEDS: Calcium Carbonate 600 MG + Vit D TAB PO SCH (09:27)
[2023-07-24] MEDS: Carvedilol 3.125 MG TAB PO SCH ×2 (09:27→17:02)
[2023-07-24] MEDS: Budesonide 0.5 MG/2 ML NEB NEB SCH ×2 (09:27→20:17)
[2023-07-24] MEDS: Loratadine 10 MG TAB PO SCH (09:28)
[2023-07-24] MEDS: Ferrous Sulfate 325 MG TAB PO SCH (09:28)
[2023-07-24] MEDS: Multivit, Therapeutic 1 TAB PO SCH (09:28)
[2023-07-24] MEDS: Losartan 25 MG TAB PO SCH (09:28)
[2023-07-24] MEDS: Oxybutynin 5 MG TAB PO SCH (09:28)
[2023-07-24] MEDS: Bupropion 150 MG SR.TAB PO SCH ×2 (09:28→20:17)
[2023-07-24] MEDS: Furosemide 20 MG TAB PO SCH ×2 (09:28→14:20)
[2023-07-24] MEDS: Acetaminophen 325 MG TAB PO PRN (14:27)
[2023-07-24] MEDS: Atorvastatin Calcium 40 MG TAB PO SCH (20:17)
[2023-07-24] MEDS: traZODone HCl 50 MG TAB PO SCH (20:17)
[2023-07-24] MEDS: Gabapentin 300 MG CAP PO SCH (20:17)
[2023-07-25] MEDS: Ipratropium/Albuterol 3 ML NEB NEB SCH ×4 (05:25→23:07)
[2023-07-25 05:54] LABS: Anion Gap 11 mmol/L (10-20); BUN (Urea Nitrogen) 25 mg/dL (9.8-20.1); Calc. Creatinine Clearance 55 mL/min (70-130); Calcium 8.5 mg/dL (7.8-10.44); Carbon Dioxide 27 mmol/L (23-31); Chloride 103 mmol/L (98-107); Estimated GFR 81; Glucose 97 mg/dL (83-110); Potassium 3.3 mmol/L (3.5-5.1); Sodium 138 mmol/L (136-145)
[2023-07-25] MEDS: Calcium Carbonate 600 MG + Vit D TAB PO SCH (08:15)
[2023-07-25] MEDS: predniSONE 20 MG TAB PO SCH (08:15)
[2023-07-25] MEDS: Aspirin 325 mg Enteric Coated Tablet PO SCH (08:15)
[2023-07-25] MEDS: Oxybutynin 5 MG TAB PO SCH (08:15)
[2023-07-25] MEDS: Multivit, Therapeutic 1 TAB PO SCH (08:15)
[2023-07-25] MEDS: Losartan 25 MG TAB PO SCH (08:16)
[2023-07-25] MEDS: Loratadine 10 MG TAB PO SCH (08:16)
[2023-07-25] MEDS: Ferrous Sulfate 325 MG TAB PO SCH (08:17)
[2023-07-25] MEDS: Budesonide 0.5 MG/2 ML NEB NEB SCH ×2 (08:17→20:22)
[2023-07-25] MEDS: Ascorbic Acid 500 mg Chewable Tablet PO SCH (08:17)
[2023-07-25] MEDS: Bupropion 150 MG SR.TAB PO SCH ×2 (08:17→20:22)
[2023-07-25] MEDS: Carvedilol 3.125 MG TAB PO SCH ×2 (08:17→17:36)
[2023-07-25] MEDS: Furosemide 20 MG TAB PO SCH ×2 (08:17→13:13)
[2023-07-25] MEDS: CO Q-10 CAPSULE 100 MG PO SCH (08:18)
[2023-07-25] MEDS: Polyethylene Glycol 3350 17 GM Packet PO SCH (08:18)
[2023-07-25] MEDS: traZODone HCl 50 MG TAB PO SCH (20:21)
[2023-07-25] MEDS: Melatonin 3 MG TAB PO PRN (20:21)
[2023-07-25] MEDS: Atorvastatin Calcium 40 MG TAB PO SCH (20:22)
[2023-07-25] MEDS: Gabapentin 300 MG CAP PO SCH (20:22)
[2023-07-26] MEDS: Ipratropium/Albuterol 3 ML NEB NEB SCH ×4 (05:22→23:19)
[2023-07-26] MEDS: Carvedilol 3.125 MG TAB PO SCH ×2 (08:59→18:08)
[2023-07-26] MEDS: Ascorbic Acid 500 mg Chewable Tablet PO SCH (08:59)
[2023-07-26] MEDS: Oxybutynin 5 MG TAB PO SCH (09:00)
[2023-07-26] MEDS: Bupropion 150 MG SR.TAB PO SCH ×2 (09:00→20:34)
[2023-07-26] MEDS: Losartan 25 MG TAB PO SCH (09:00)
[2023-07-26] MEDS: Multivit, Therapeutic 1 TAB PO SCH (09:00)
[2023-07-26] MEDS: Ferrous Sulfate 325 MG TAB PO SCH (09:01)
[2023-07-26] MEDS: Loratadine 10 MG TAB PO SCH (09:01)
[2023-07-26] MEDS: Aspirin 325 mg Enteric Coated Tablet PO SCH (09:01)
[2023-07-26] MEDS: Calcium Carbonate 600 MG + Vit D TAB PO SCH (09:01)
[2023-07-26] MEDS: Acetaminophen 325 MG TAB PO PRN (09:01)
[2023-07-26] MEDS: Budesonide 0.5 MG/2 ML NEB NEB SCH ×2 (09:02→20:33)
[2023-07-26] MEDS: Polyethylene Glycol 3350 17 GM Packet PO SCH (09:02)
[2023-07-26] MEDS: Furosemide 20 MG TAB PO SCH ×2 (09:02→13:25)
[2023-07-26] MEDS: predniSONE 20 MG TAB PO SCH (09:02)
[2023-07-26] MEDS: CO Q-10 CAPSULE 100 MG PO SCH (09:02)
[2023-07-26] MEDS: Nystatin 500,000 UNITS/5 ML UDCUP SSW SCH ×2 (18:08→20:33)
[2023-07-26] MEDS: Gabapentin 300 MG CAP PO SCH (20:33)
[2023-07-26] MEDS: Atorvastatin Calcium 40 MG TAB PO SCH (20:34)
[2023-07-26] MEDS: traZODone HCl 50 MG TAB PO SCH (20:34)
[2023-07-27] MEDS: Ipratropium/Albuterol 3 ML NEB NEB SCH ×4 (05:29→23:46)
[2023-07-27] MEDS: Loratadine 10 MG TAB PO SCH (08:44)
[2023-07-27] MEDS: Calcium Carbonate 600 MG + Vit D TAB PO SCH (08:44)
[2023-07-27] MEDS: Budesonide 0.5 MG/2 ML NEB NEB SCH ×2 (08:44→20:29)
[2023-07-27] MEDS: Carvedilol 3.125 MG TAB PO SCH ×2 (08:44→17:11)
[2023-07-27] MEDS: Ascorbic Acid 500 mg Chewable Tablet PO SCH (08:44)
[2023-07-27] MEDS: CO Q-10 CAPSULE 100 MG PO SCH (08:44)
[2023-07-27] MEDS: Losartan 25 MG TAB PO SCH (08:44)
[2023-07-27] MEDS: Oxybutynin 5 MG TAB PO SCH (08:44)
[2023-07-27] MEDS: Furosemide 20 MG TAB PO SCH ×2 (08:45→14:06)
[2023-07-27] MEDS: Nystatin 500,000 UNITS/5 ML UDCUP SSW SCH ×4 (08:45→20:30)
[2023-07-27] MEDS: Multivit, Therapeutic 1 TAB PO SCH (08:45)
[2023-07-27] MEDS: Bupropion 150 MG SR.TAB PO SCH ×2 (08:45→20:30)
[2023-07-27] MEDS: Polyethylene Glycol 3350 17 GM Packet PO SCH (08:45)
[2023-07-27] MEDS: Aspirin 325 mg Enteric Coated Tablet PO SCH (08:45)
[2023-07-27] MEDS: Ferrous Sulfate 325 MG TAB PO SCH (08:45)
[2023-07-27] MEDS: predniSONE 20 MG TAB PO SCH (08:45)
[2023-07-27] MEDS: traZODone HCl 50 MG TAB PO SCH (20:30)
[2023-07-27] MEDS: Atorvastatin Calcium 40 MG TAB PO SCH (20:30)
[2023-07-27] MEDS: Gabapentin 300 MG CAP PO SCH (20:30)
[2023-07-28] MEDS: Ipratropium/Albuterol 3 ML NEB NEB SCH ×3 (05:13→17:08)
[2023-07-28] MEDS: Polyethylene Glycol 3350 17 GM Packet PO SCH (08:15)
[2023-07-28] MEDS: Nystatin 500,000 UNITS/5 ML UDCUP SSW SCH ×4 (08:15→20:33)
[2023-07-28] MEDS: Aspirin 325 mg Enteric Coated Tablet PO SCH (08:15)
[2023-07-28] MEDS: Bupropion 150 MG SR.TAB PO SCH ×2 (08:15→20:27)
[2023-07-28] MEDS: Ferrous Sulfate 325 MG TAB PO SCH (08:15)
[2023-07-28] MEDS: Losartan 25 MG TAB PO SCH (08:16)
[2023-07-28] MEDS: Loratadine 10 MG TAB PO SCH (08:16)
[2023-07-28] MEDS: Budesonide 0.5 MG/2 ML NEB NEB SCH ×2 (08:16→20:27)
[2023-07-28] MEDS: Oxybutynin 5 MG TAB PO SCH (08:16)
[2023-07-28] MEDS: predniSONE 20 MG TAB PO SCH (08:16)
[2023-07-28] MEDS: Ascorbic Acid 500 mg Chewable Tablet PO SCH (08:16)
[2023-07-28] MEDS: Furosemide 20 MG TAB PO SCH ×2 (08:16→13:30)
[2023-07-28] MEDS: CO Q-10 CAPSULE 100 MG PO SCH (08:16)
[2023-07-28] MEDS: Multivit, Therapeutic 1 TAB PO SCH (08:16)
[2023-07-28] MEDS: Carvedilol 3.125 MG TAB PO SCH ×2 (08:16→17:07)
[2023-07-28] MEDS: Calcium Carbonate 600 MG + Vit D TAB PO SCH (08:16)
[2023-07-28] MEDS: Acetaminophen 325 MG TAB PO PRN ×2 (08:29→20:32)
[2023-07-28 13:52] VITALS: BMI 22.4
[2023-07-28] MEDS: Melatonin 3 MG TAB PO PRN (20:27)
[2023-07-28] MEDS: traZODone HCl 50 MG TAB PO SCH (20:27)
[2023-07-28] MEDS: Gabapentin 300 MG CAP PO SCH (20:28)
[2023-07-28] MEDS: Atorvastatin Calcium 40 MG TAB PO SCH (20:32)
[2023-07-29] MEDS: Ipratropium/Albuterol 3 ML NEB NEB SCH ×4 (00:39→17:07)
[2023-07-29] MEDS: Ferrous Sulfate 325 MG TAB PO SCH (07:56)
[2023-07-29] MEDS: Carvedilol 3.125 MG TAB PO SCH ×2 (07:57→17:07)
[2023-07-29] MEDS: Budesonide 0.5 MG/2 ML NEB NEB SCH ×2 (08:03→20:19)
[2023-07-29] MEDS: Polyethylene Glycol 3350 17 GM Packet PO SCH (08:03)
[2023-07-29] MEDS: Nystatin 500,000 UNITS/5 ML UDCUP SSW SCH ×4 (08:03→20:18)
[2023-07-29] MEDS: predniSONE 20 MG TAB PO SCH (08:04)
[2023-07-29] MEDS: Furosemide 20 MG TAB PO SCH ×2 (08:04→14:34)
[2023-07-29] MEDS: CO Q-10 CAPSULE 100 MG PO SCH (08:04)
[2023-07-29] MEDS: Calcium Carbonate 600 MG + Vit D TAB PO SCH (08:04)
[2023-07-29] MEDS: Aspirin 325 mg Enteric Coated Tablet PO SCH (08:04)
[2023-07-29] MEDS: Loratadine 10 MG TAB PO SCH (08:04)
[2023-07-29] MEDS: Oxybutynin 5 MG TAB PO SCH (08:04)
[2023-07-29] MEDS: Acetaminophen 325 MG TAB PO PRN ×2 (08:05→20:18)
[2023-07-29] MEDS: Ascorbic Acid 500 mg Chewable Tablet PO SCH (08:05)
[2023-07-29] MEDS: Multivit, Therapeutic 1 TAB PO SCH (08:05)
[2023-07-29] MEDS: Losartan 25 MG TAB PO SCH (08:05)
[2023-07-29] MEDS: Bupropion 150 MG SR.TAB PO SCH ×2 (08:05→20:22)
[2023-07-29] MEDS: Gabapentin 300 MG CAP PO SCH (20:18)
[2023-07-29] MEDS: traZODone HCl 50 MG TAB PO SCH (20:19)
[2023-07-29] MEDS: Atorvastatin Calcium 40 MG TAB PO SCH (20:22)
[2023-07-30] MEDS: Ipratropium/Albuterol 3 ML NEB NEB SCH ×4 (00:21→17:11)
[2023-07-30] MEDS: Melatonin 3 MG TAB PO PRN ×2 (02:15→20:44)
[2023-07-30 07:38] LABS: Anion Gap 14 mmol/L (10-20); BUN (Urea Nitrogen) 20 mg/dL (9.8-20.1); Calc. Creatinine Clearance 48 mL/min (70-130); Calcium 9.1 mg/dL (7.8-10.44); Carbon Dioxide 29 mmol/L (23-31); Chloride 101 mmol/L (98-107); Estimated GFR 69; Glucose 126 mg/dL (83-110); Potassium 3.6 mmol/L (3.5-5.1); Sodium 140 mmol/L (136-145)
[2023-07-30] MEDS: Budesonide 0.5 MG/2 ML NEB NEB SCH ×2 (08:34→20:46)
[2023-07-30] MEDS: Nystatin 500,000 UNITS/5 ML UDCUP SSW SCH ×4 (08:34→20:45)
[2023-07-30] MEDS: Calcium Carbonate 600 MG + Vit D TAB PO SCH (08:34)
[2023-07-30] MEDS: Loratadine 10 MG TAB PO SCH (08:35)
[2023-07-30] MEDS: Carvedilol 3.125 MG TAB PO SCH ×2 (08:35→17:11)
[2023-07-30] MEDS: CO Q-10 CAPSULE 100 MG PO SCH (08:35)
[2023-07-30] MEDS: Bupropion 150 MG SR.TAB PO SCH ×2 (08:35→20:44)
[2023-07-30] MEDS: Oxybutynin 5 MG TAB PO SCH (08:35)
[2023-07-30] MEDS: Losartan 25 MG TAB PO SCH (08:35)
[2023-07-30] MEDS: Furosemide 20 MG TAB PO SCH ×2 (08:35→13:08)
[2023-07-30] MEDS: Ascorbic Acid 500 mg Chewable Tablet PO SCH (08:35)
[2023-07-30] MEDS: Aspirin 325 mg Enteric Coated Tablet PO SCH (08:35)
[2023-07-30] MEDS: Ferrous Sulfate 325 MG TAB PO SCH (08:36)
[2023-07-30] MEDS: predniSONE 20 MG TAB PO SCH (08:36)
[2023-07-30] MEDS: Multivit, Therapeutic 1 TAB PO SCH (08:36)
[2023-07-30] MEDS: Polyethylene Glycol 3350 17 GM Packet PO SCH (08:36)
[2023-07-30] MEDS: Acetaminophen 325 MG TAB PO PRN (13:25)
[2023-07-30] MEDS: Atorvastatin Calcium 40 MG TAB PO SCH (20:43)
[2023-07-30] MEDS: traZODone HCl 50 MG TAB PO SCH (20:43)
[2023-07-30] MEDS: Gabapentin 300 MG CAP PO SCH (20:44)
[2023-07-31] MEDS: Ipratropium/Albuterol 3 ML NEB NEB SCH ×4 (05:17→17:39)
[2023-07-31] MEDS: Ascorbic Acid 500 mg Chewable Tablet PO SCH (08:34)
[2023-07-31] MEDS: Polyethylene Glycol 3350 17 GM Packet PO SCH (08:34)
[2023-07-31] MEDS: Budesonide 0.5 MG/2 ML NEB NEB SCH ×2 (08:34→20:36)
[2023-07-31] MEDS: Nystatin 500,000 UNITS/5 ML UDCUP SSW SCH ×5 (08:34→20:35)
[2023-07-31] MEDS: Losartan 25 MG TAB PO SCH (08:34)
[2023-07-31] MEDS: Multivit, Therapeutic 1 TAB PO SCH (08:34)
[2023-07-31] MEDS: Aspirin 325 mg Enteric Coated Tablet PO SCH (08:34)
[2023-07-31] MEDS: CO Q-10 CAPSULE 100 MG PO SCH (08:34)
[2023-07-31] MEDS: Bupropion 150 MG SR.TAB PO SCH ×2 (08:35→20:35)
[2023-07-31] MEDS: Ferrous Sulfate 325 MG TAB PO SCH (08:35)
[2023-07-31] MEDS: Oxybutynin 5 MG TAB PO SCH (08:35)
[2023-07-31] MEDS: Loratadine 10 MG TAB PO SCH (08:35)
[2023-07-31] MEDS: Furosemide 20 MG TAB PO SCH ×2 (08:35→13:05)
[2023-07-31] MEDS: predniSONE 5 MG TAB PO SCH (08:36)
[2023-07-31] MEDS: Carvedilol 3.125 MG TAB PO SCH ×2 (08:36→17:39)
[2023-07-31] MEDS: Calcium Carbonate 600 MG + Vit D TAB PO SCH (08:36)
[2023-07-31] MEDS: traZODone HCl 50 MG TAB PO SCH (20:35)
[2023-07-31] MEDS: Atorvastatin Calcium 40 MG TAB PO SCH (20:36)
[2023-07-31] MEDS: Gabapentin 300 MG CAP PO SCH (20:36)
[2023-08-01] MEDS: Ipratropium/Albuterol 3 ML NEB NEB SCH ×2 (00:19→05:22)
[2023-08-01 05:21] LABS: Hematocrit 36.2 % (36.0-47.0); Hemoglobin 11.4 g/dL (12.0-16.0); Platelet Count 237 10x3/uL (130-400)
[2023-08-01 07:24] VITALS: BP 130/75
[2023-08-01] MEDS: Loratadine 10 MG TAB PO SCH (08:52)
[2023-08-01] MEDS: Oxybutynin 5 MG TAB PO SCH (08:52)
[2023-08-01] MEDS: Multivit, Therapeutic 1 TAB PO SCH (08:52)
[2023-08-01] MEDS: CO Q-10 CAPSULE 100 MG PO SCH (08:52)
[2023-08-01] MEDS: Ferrous Sulfate 325 MG TAB PO SCH (08:53)
[2023-08-01] MEDS: Furosemide 20 MG TAB PO SCH (08:53)
[2023-08-01] MEDS: Calcium Carbonate 600 MG + Vit D TAB PO SCH (08:53)
[2023-08-01] MEDS: predniSONE 5 MG TAB PO SCH (08:53)
[2023-08-01] MEDS: Carvedilol 3.125 MG TAB PO SCH (08:53)
[2023-08-01] MEDS: Aspirin 325 mg Enteric Coated Tablet PO SCH (08:53)
[2023-08-01] MEDS: Losartan 25 MG TAB PO SCH (08:53)
[2023-08-01] MEDS: Ascorbic Acid 500 mg Chewable Tablet PO SCH (08:53)
[2023-08-01] MEDS: Bupropion 150 MG SR.TAB PO SCH (08:53)
[2023-08-01] MEDS: Nystatin 500,000 UNITS/5 ML UDCUP SSW SCH (08:54)
[2023-08-01] MEDS: Polyethylene Glycol 3350 17 GM Packet PO SCH (08:54)
[2023-08-01] MEDS: Budesonide 0.5 MG/2 ML NEB NEB SCH (08:54)
[2023-08-01 09:36] VITALS: TEMP 98.9
[2023-08-02] MEDS ORDERED: predniSONE 5 MG TAB PO SCH (08:00)
== END 2023-08-01 11:50 | disposition home health service (06) | DRG 947 ==
LOC: MADMS 19:43 → UNDOADMIN 19:43 → MADMS 07-24 18:09
PROVIDERS: ADMIT Family Medicine; ATTEND Family Medicine
DX: R53.81 Other malaise (principal); I50.43 Acute on chronic combined systolic (congestive) and diastolic (congestive) heart failure; J96.21 Acute and chronic respiratory failure with hypoxia; J96.11 Chronic respiratory failure with hypoxia; J44.1 Chronic obstructive pulmonary disease with (acute) exacerbation; I50.42 Chronic combined systolic (congestive) and diastolic (congestive) heart failure; I11.0 Hypertensive heart disease with heart failure; F17.210 Nicotine dependence, cigarettes, uncomplicated; J44.9 Chronic obstructive pulmonary disease, unspecified; Z96.652 Presence of left artificial knee joint; E78.5 Hyperlipidemia, unspecified; I25.10 Atherosclerotic heart disease of native coronary artery without angina pectoris; G25.71 Drug induced akathisia; Z95.810 Presence of automatic (implantable) cardiac defibrillator; Z99.81 Dependence on supplemental oxygen; Z90.49 Acquired absence of other specified parts of digestive tract; Z98.890 Other specified postprocedural states; Z90.89 Acquired absence of other organs; Z82.49 Family history of ischemic heart disease and other diseases of the circulatory system; Z79.899 Other long term (current) drug therapy
CPT/HCPCS: 36415; 80048; 80053; 83880; 85014; 85018; 85025; 85049; J1650; J7512; J7611; J7620; J7626; Q0162

== ENCOUNTER 2023-09-17 12:53 | Emergency (ER) | payer MEDICARE, OTHER ==
[2023-09-17 13:29] LABS: Bilirubin Negative (Negative); Blood, Urine Trace (Negative); Clarity Clear (Clear); Glucose, Urine (Dipstick) Negative (Negative); Ketone, Urine Negative (Negative); Leukocyte Large (Negative); Nitrite Negative (Negative); Protein, Urine (Dipstick) Negative (Neg-Trace); Urobilinogen 0.2 mg/dL (Less than 2)
[2023-09-17 13:33] LABS: Bacteria/HPF 1+ HPF (None Seen); CAUTI Indications for Culture Dysuria,urgency,freq; RBC/HPF 0-3 HPF (0-3); Squamous Epithelial 0-3 HPF (0-3); WBC/HPF Greater than 50 HPF (0-3)
[2023-09-17 13:35] LABS: Urine Culture Reflex Yes Yes
[2023-09-17 14:34] LABS: #Basophils 0.2 thou/uL (0.0-0.2); #Eosinphils 0.1 thou/uL (0.0-0.7); #Lymphocytes 2.4 thou/uL (1.20-3.40); #Monocytes 0.7 thou/uL (0.11-0.59); #Neutrophils 6.1 thou/uL (1.40-6.50); %Basophils 1.6 % (0.0-1.0); %Eosinophils 1.6 % (0.0-10.0); %Lymphocytes 24.9 % (21.0-51.0); %Monocytes 7.4 % (0.0-10.0); %Neutrophils 64.5 % (42.0-75.0); Hematocrit 42.9 % (36.0-47.0); Hemoglobin 13.6 g/dL (12.0-16.0); Mean Corpuscular HGB CONC 31.6 g/dL (32.0-36.0); Mean Corpuscular Hemoglobin 31.5 pg (27.0-31.0); Mean Corpuscular Volume 99.5 fl (78.0-98.0); Mean Platelet Volume 7.9 fL (7.4-10.4); Platelet Count 264 10x3/uL (130-400); Red Blood Cell (RBC) Count 4.31 mill/uL (4.20-5.40); White Blood Cell (WBC) Count 9.5 10x3/uL (4.8-10.8)
[2023-09-17 14:40] LABS: INR-International Normal Ratio 0.9
[2023-09-17 14:46] LABS: ALT (SGPT) 18 U/L (8-55); AST (SGOT) 15 U/L (5-34); Albumin 4.2 g/dL (3.4-4.8); Alkaline Phosphatase 105 U/L (40-110); Anion Gap 14 mmol/L (10-20); BUN (Urea Nitrogen) 9 mg/dL (9.8-20.1); Bilirubin, Total 0.3 mg/dL (0.2-1.2); Calc. Creatinine Clearance 0 mL/min (70-130); Calcium 9.6 mg/dL (7.8-10.44); Carbon Dioxide 27 mmol/L (23-31); Chloride 99 mmol/L (98-107); Estimated GFR 75; Globulin 2.7 g/dL (2.4-3.5); Glucose 95 mg/dL (83-110); Potassium 3.9 mmol/L (3.5-5.1); Protein, Total 6.9 g/dL (5.8-8.1); Sodium 136 mmol/L (136-145)
[2023-09-17] MEDS ORDERED: Cephalexin 500 MG CAP ONE (16:35)
== END 2023-09-17 16:32 | disposition home or self-care (01) ==
LOC: MADERS 12:53
DX: S09.90XA Unspecified injury of head, initial encounter (principal); R07.89 Other chest pain; M25.561 Pain in right knee; N39.0 Urinary tract infection, site not specified; F17.210 Nicotine dependence, cigarettes, uncomplicated; I11.0 Hypertensive heart disease with heart failure; I50.9 Heart failure, unspecified; E78.5 Hyperlipidemia, unspecified; J44.9 Chronic obstructive pulmonary disease, unspecified; W01.190A Fall on same level from slipping, tripping and stumbling with subsequent striking against furniture, initial encounter; Z95.1 Presence of aortocoronary bypass graft; Z79.899 Other long term (current) drug therapy
CPT/HCPCS: 36415; 70450; 71250; 80053; 81001; 85025; 85610; 87077; 87086; 87186

== ENCOUNTER 2024-02-24 16:45 | Emergency (ER) | payer OTHER ==
[2024-02-24] MEDS ORDERED: Cephalexin 500 MG CAP ONE (17:13)
[2024-02-24] MEDS ORDERED: Boostrix 0.5 ML (Tdap) VIAL (>/=7 yrs of age) ONE (17:13)
== END 2024-02-24 17:42 | disposition home or self-care (01) ==
LOC: MADERS 16:45
DX: S40.811A Abrasion of right upper arm, initial encounter (principal); L03.113 Cellulitis of right upper limb; F17.210 Nicotine dependence, cigarettes, uncomplicated; I11.0 Hypertensive heart disease with heart failure; I50.9 Heart failure, unspecified; W54.1XXA Struck by dog, initial encounter
CPT/HCPCS: 90471; 90715

== ENCOUNTER 2024-03-16 21:47 | Emergency (ER) | payer OTHER ==
[2024-03-17] MEDS ORDERED: methylPREDNISolone Sod Succ/PF 125 MG/2 ML VIAL ONE (00:06)
[2024-03-17] MEDS ORDERED: Albuterol 2.5 MG (3 mL) NEB ONE (00:06)
[2024-03-17] MEDS ORDERED: Azithromycin 500 MG VIAL ONE (00:06)
[2024-03-17] MEDS ORDERED: Ipratropium Bromide 2.5 ml Neb ONE (00:06)
[2024-03-17] MEDS ORDERED: cefTRIAXone (ROCEPHIN) 1 GM VIAL ONE (00:07)
[2024-03-17 00:22] LABS: INR-International Normal Ratio 1.1; Prothrombin Time 13.7 sec (12.0-14.7)
[2024-03-17 00:24] LABS: PTT 52.5 sec (22.9-36.1)
[2024-03-17 00:32] LABS: ALT (SGPT) 19 U/L (8-55); AST (SGOT) 22 U/L (5-34); Albumin 3.5 g/dL (3.4-4.8); Alkaline Phosphatase 76 U/L (40-110); Anion Gap 16 mmol/L (10-20); BUN (Urea Nitrogen) 12 mg/dL (9.8-20.1); Bilirubin, Total 0.5 mg/dL (0.2-1.2); Calc. Creatinine Clearance 0 mL/min (70-130); Calcium 8.6 mg/dL (7.8-10.44); Carbon Dioxide 20 mmol/L (23-31); Chloride 102 mmol/L (98-107); Estimated GFR 77; Globulin 2.2 g/dL (2.4-3.5); Glucose 104 mg/dL (83-110); Potassium 3.4 mmol/L (3.5-5.1); Protein, Total 5.7 g/dL (5.8-8.1); Sodium 135 mmol/L (136-145)
[2024-03-17 00:33] LABS: Troponin I 0.081 ng/mL (< 0.028)
[2024-03-17 00:35] LABS: Hematocrit 37.9 % (36.0-47.0); Hemoglobin 12.7 g/dL (12.0-16.0); Lymphocytes 14 % (21-51); MDiff Complete? YES; Mean Corpuscular HGB CONC 33.4 g/dL (32.0-36.0); Mean Corpuscular Hemoglobin 31.6 pg (27.0-31.0); Mean Corpuscular Volume 94.6 fl (78.0-98.0); Mean Platelet Volume 6.8 fL (7.4-10.4); Monocytes 11 % (0-10); Neutrophil 75 % (42-75); Platelet Count 188 10x3/uL (130-400); RBC Distribution Width 11.8 % (11.5-14.5); Red Blood Cell (RBC) Count 4.01 mill/uL (4.20-5.40); White Blood Cell (WBC) Count 9.1 10x3/uL (4.8-10.8)
[2024-03-17] MEDS ORDERED: Aspirin 325 MG TAB ONE (01:16)
[2024-03-17] MEDS ORDERED: Potassium Chloride 20 MEQ TAB ONE (01:16)
[2024-03-17] MEDS ORDERED: Ipratropium/Albuterol 3 ML NEB ONE ×2 (01:18→04:02)
[2024-03-17 01:26] LABS: Base Excess-Venous -0.7 mmol/L (-2.0 to 3.0); Bicarbonate (HCO3v) 23.8 mmol/L (22.0-28.0); CO2 Tension (PvCO2) 37.8 mmHg (42.0-51.0); Calcium, Ionized 1.12 mmol/L (1.15-1.33); Chloride 100 mmol/L (98-107); Potassium 3.1 mmol/L (3.5-5.1); Sodium 136 mmol/L (138-145); vO2 Saturation-calc 89.7 % (60.0-85.0)
[2024-03-17 01:35] LABS: Magnesium 1.6 mg/dL (1.6-2.6)
[2024-03-17 02:05] LABS: Influenza A by NAA Not Detected (NotDetected); Influenza B by NAA Not Detected (NotDetected); SARS-CoV-2 NAA Rapid Test Not Detected (NotDetected)
== END 2024-03-17 05:02 | disposition short-term general hospital (02) ==
LOC: MADERS 21:47
DX: J44.1 Chronic obstructive pulmonary disease with (acute) exacerbation (principal); E87.6 Hypokalemia; R09.02 Hypoxemia; I45.81 Long QT syndrome; R79.89 Other specified abnormal findings of blood chemistry; E78.5 Hyperlipidemia, unspecified; I11.0 Hypertensive heart disease with heart failure; I50.9 Heart failure, unspecified; Z79.82 Long term (current) use of aspirin; Z79.899 Other long term (current) drug therapy
CPT/HCPCS: 71045; 80053; 82330; 82435; 82803; 83605; 83735; 84132; 84295; 84484; 85014; 85025; 85610; 85730; 87040; 93005; 94760; 96365; 96375; J0456; J0696; J2930; J7611; J7620